=== PATIENT | male | born 1950 | race Caucasian/White ===

== ENCOUNTER 2018-04-20 07:14 | Inpatient (IN) | payer OTHER ==
--- OUTSIDE RECORDS SUMMARY | 2018-04-20 07:17 | XMS REPORT | Clinical Summary ---
:1950 Author Organization [facility] Address [address] [place] [address] Phone Care Team Providers Name Role Phone Unavailable Primary Care Provider Unavailable Allergies No Known Allergies Current Medications Prescription Sig. Disp. Refills Start Date End Date Status aspirin 81 MG EC Take 1 tablet 90 tablet 0 05/05/2017 Active tabletIndications: (81 mg total) unknown dosage by mouth daily. atorvastatin Take 1 tablet 90 tablet 0 05/05/2017 05/05/2018 Active (LIPITOR) 80 MG (80 mg total) tablet by mouth nightly. metoprolol Take 1 tablet 90 tablet 0 05/05/2017 05/05/2018 Active (TOPROL-XL) 25 MG (25 mg total) 24 hr tablet by mouth daily. aspirin 81 MG EC Take by mouth 05/05/2017 Discontinued tabletIndications: daily. unknown dosage ibuprofen Take by mouth 05/05/2017 Discontinued (ADVIL,MOTRIN) 200 every 6 (six) MG hours as tabletIndications: needed for unknown dosage Pain. Active Problems Problem Noted Date Received tissue plasminogen activator (t-PA) less than 24 hours prior to 05/05 arrival Essential hypertension 05/05/2017 Mixed hyperlipidemia 05/05/2017 Acute ischemic right MCA stroke (HCC) 05/02/2017 Resolved Problems Problem Noted Date Resolved Date Aphasia 05/02/2017 05/02/2017 Encounters Date Type Specialty Care Team Description 05/03/2017 Orders Only General Internal Medicine 05/02/2017 - Hospital Encounter General Internal Ovidio Kramer Acute ischemic right 05/05/2017 Chelsea Castrejon MD MCA stroke (HCC) Camila Donaldson, (Primary MD Dx);Aphasia;[facility] hypertension;Mixed hyperlipidemia;Recei tong tissue plasminogen activator (t-PA) less than 24 hours prior to arrival;Left acute arterial ischemic stroke, MCA (middle cerebral artery) (HCC);Right hemiparesis (HCC);Impaired mobility and ADLs after 04/19/2017 Social History Tobacco Use Types Packs/Day Years Used Date Former Smoker Sex Assigned at Date Recorded Not on file Last Filed Vital Signs Vital Sign Reading Time Taken Blood Pressure 176/89 05/05/2017 4:12 PM CDT Pulse 59 05/05/2017 4:12 PM CDT Temperature 37.2 C (98.9 F) 05/05/2017 4:12 PM CDT Respiratory Rate 18 05/05/2017 4:12 PM CDT Oxygen Saturation 96% 05/05/2017 4:12 PM CDT Inhaled Oxygen Concentration - - Weight 77.2 kg (170 lb 3.1 oz) 05/03/2017 10:00 AM CDT Height 167.6 cm (5' 6") 05/03/2017 10:00 AM CDT Body Mass Index 27.47 05/03/2017 10:00 AM CDT Plan of Treatment Not on file Results RHYTHM STRIP - SCAN (06/23/2017 2:02 PM)Only the most recent of2 resultswithin the time period is included.EKG-SCANNED (05/08/2017 2:50 PM)CBC with platelet count + automated diff (05/05/2017 4:31 AM)Only the most recent of4 resultswithin the time period is included. Component Value Ref Range WBC 9.0 3.5 - 10.5 K/L RBC 4.86 4.63 - 6.08 M/L Hemoglobin 13.8 13.7 - 17.5 GM/DL Hematocrit 41.3 40.1 - 51.0 % MCV 85.0 79.0 - 92.2 fL MCH 28.4 25.7 - 32.2 pg MCHC 33.4 32.3 - 36.5 GM/DL RDW 12.7 11.6 - 14.4 % Platelets 240 150 - 450 K/CU MM MPV 11.0 9.4 - 12.4 fL nRBC 0 0 - 0 /100 WBC % Neutros 48 % % Lymphs 34 % % Monos 11 % % Eos 6 % % Baso 1 % # Neutros 4.35 1.78 - 5.38 K/L # Lymphs 3.04 1.32 - 3.57 K/L # Monos 0.99 (H) 0.30 - 0.82 K/L # Eos 0.51 0.04 - 0.54 K/L # Baso 0.06 0.01 - 0.08 K/L Immature Granulocytes-Relative 0 0 - 1 % Specimen Performing Laboratory Blood - Arm, [address] [address] CBC with platelet count + automated diff (05/05/2017 4:31 AM)Only the most recent of4 resultswithin the time period is included. Specimen Performing Laboratory Blood Narrative The following orders were created for panel order CBC with platelet count + automated diff. Procedure Abnormality Status --------- ------ CBC with platelet count ...[[id number]]AbnormalFinal result Please view results for these tests on the individual orders. Basic Metabolic Panel (05/05/2017 4:31 AM)Only the most recent of4 resultswithin the time period is included. Component Value Ref Range Sodium 138 136 - 145 meq/L Potassium 3.7 3.5 - 5.1 meq/L Chloride 107 98 - 107 meq/L CO2 20 (L) 22 - 29 meq/L BUN 13 7 - 21 mg/dL Creatinine 1.04 0.57 - 1.25 mg/dL Glucose 88 70 - 105 mg/dL Calcium 8.7 8.4 - 10.2 mg/dL EGFR 71Comment: ESTIMATED GFR IS NOT ACCURATE mL/min/1.73 sq m CREATININE CLEARANCE IN PREDICTING GLOMERULAR FILTRATION RATE. ESTIMATED GFR IS NOT APPLICABLE FOR DIALYSIS PATIENTS. Specimen Performing Laboratory Blood - Arm, [address] [address] MR brain without IV contrast (05/03/2017 4:10 PM) Specimen Performing Laboratory GE RIS Narrative FINAL REPORT MRI brain without contrast INDICATION: Stroke TECHNIQUE: Multiplanar, multisequence MR imaging of the brain was performed utilizing the following imaging sequences: Axial T2, FLAIR, GRE, and DWI; sagittal and coronal T1 COMPARISON: CT head 05/02/2017 FINDINGS: There are multifocal acute left MCA territory primarily cortical infarcts involving the inferolateral and suprasylvian frontal lobe, parietal lobe, and lateral occipital and superior temporal lobes and anterior insula. There is left parietal cortical petechial hemorrhage but no malignant hematoma or remarkable current mass effect. Mild to moderate chronic white matter changes suggest microvascular ischemia. There is generalized parenchymal volume loss. The major proximal [place] of [place] flow voids are maintained. The sella and craniocervical junction are unremarkable. There is chronic polypoid sinus mucosal disease with clear mastoid air cells. The globes appear mildly proptotic. A small T2 hyperintense lesion adjacent to the left TMJ could reflect a small likely joint effusion or synovial cyst, but a primary parotid lesion cannot be excluded given another T2 hyperintense lesion more peripherally in the left parotid gland. Advise ENT follow up. IMPRESSION: 1. Acute multifocal left MCA territory primarily cortical infarction involving the frontal, parietal, occipital, and superior temporal lobes and anterior insula. Left parietal petechial hemorrhage but no malignant hematoma or remarkable current mass effect. 2. Chronic microvascular ischemic changes. 3. Small left parotid and periparotid lesions for which ENT follow up is suggested. 4. Additional chronic and involutional findings as discussed. Findings discussed with stroke neurology housestaff at 4:25 PM Signed: Tonja Gonsalez MD Report Verified Date/Time:05/03/2017 16:26:21 Reading Location: [facility] [id number] Consult Reading Room Procedure Note Interface, External Ris In - 05/03/2017 4:28 PM CDT FINAL REPORT MRI brain without contrast INDICATION: Stroke TECHNIQUE: Multiplanar, multisequence MR imaging of the brain was performed utilizing the following imaging sequences: Axial T2, FLAIR, GRE, and DWI; sagittal and coronal T1 COMPARISON: CT head 05/02/2017 FINDINGS: There are multifocal acute left MCA territory primarily cortical infarcts involving the inferolateral and suprasylvian frontal lobe, parietal lobe, and lateral occipital and superior temporal lobes and anterior insula. There is left parietal cortical petechial hemorrhage but no malignant hematoma or remarkable current mass effect. Mild to moderate chronic white matter changes suggest microvascular ischemia. There is generalized parenchymal volume loss. The major proximal [place] of [place] flow voids are maintained. The sella and craniocervical junction are unremarkable. There is chronic polypoid sinus mucosal disease with clear mastoid air cells. The globes appear mildly proptotic. A small T2 hyperintense lesion adjacent to the left TMJ could reflect a small likely joint effusion or synovial cyst, but a primary parotid lesion cannot be excluded given another T2 hyperintense lesion more peripherally in the left parotid gland. Advise ENT follow up. IMPRESSION: 1. Acute multifocal left MCA territory primarily cortical infarction involving the frontal, parietal, occipital, and superior temporal lobes and anterior insula. Left parietal petechial hemorrhage but no malignant hematoma or remarkable current mass effect. 2. Chronic microvascular ischemic changes. 3. Small left parotid and periparotid lesions for which ENT follow up is suggested. 4. Additional chronic and involutional findings as discussed. Findings discussed with stroke neurology housestaff at 4:25 PM Signed: Tonja Gonsalez MD Report Verified Date/Time: 05/03/2017 16:26:21 Reading Location: [facility] [id number] Consult Reading Room /Free T4 If Indicated (05/03/2017 2:15 PM) Component Value Ref Range TSH 1.26 0.35 - 4.94 uIU/mL Specimen Performing Laboratory Blood [address] [address] Troponin I (05/03/2017 2:15 PM) Component Value Ref Range Troponin I 0.11 (H) 0.00 - 0.03 ng/mL Specimen Performing Laboratory Blood [address] [address] Narrative Effective 08/26/2014: Reference Range Change New: 0.00-0.03 Previous 0.00-0.15 Troponin I (TnI) levels must be interpreted in the context of the presenting symptoms and the clinical findings. Elevated TnI levels indicate myocardial damage, but are not specific for ischemic heart disease. Elevated TnI levels are seen in patients with other cardiac conditions (including myocarditis and congestive heart failure), and slight TnI elevations occur in patients with other conditions, including sepsis, renal failure, acidosis, acute neurological disease, and persistent tachyarrhythmia. RPR (05/03/2017 2:15 PM) Component Value Ref Range RPR Nonreactive Nonreactive Specimen Performing Laboratory [address] [address] B-type Natriuretic Factor (BNP) (05/03/2017 2:15 PM) Component Value Ref Range BNP 185 (H) 0 - 100 pg/mL Specimen Performing Laboratory Blood [address] [address] Hemoglobin A1c (05/03/2017 2:15 PM) Component Value Ref Range Hemoglobin A1C 5.9 4.3 - 6.1 % Specimen Performing Laboratory [address] [address] Vitamin B12 (05/03/2017 2:15 PM) Component Value Ref Range Vitamin B12 296 213 - 816 pg/mL Specimen Performing Laboratory Blood [address] [address] Creatine Kinase (CK), Total and MB (05/03/2017 2:15 PM) Component Value Ref Range Total CK 195 29 - 200 U/L CK-MB 1.6 0.0 - 6.6 ng/mL MB Relative Index 0.8 % Specimen Performing Laboratory Blood [address] [address] Narrative Effective 08/26/2014: CK-MB Reference Range Change New: 0.0-6.6Previous: 0.0-4.9 CK-MB Reference Range: <6.7Normal 6.7-10.0Borderline >10.0 Abnormal Hepatic function panel (05/03/2017 2:15 PM) Component Value Ref Range Protein, Total 6.8 6.0 - 8.3 gm/dL Albumin 4.1 3.5 - 5.0 g/dL Total Bilirubin 0.9 0.2 - 1.2 mg/dL Bilirubin, Direct 0.3 0.1 - 0.5 mg/dL Alkaline Phosphatase 53 40 - 150 U/L AST 27 5 - 34 U/L ALT 36 6 - 55 U/L Specimen Performing Laboratory Blood [address] [address] 2D Echo W/Doppler(CW/PW/Color) (05/03/2017 12:28 PM) Specimen Performing Laboratory DIGISONICS Narrative Echocardiography Laboratory [address] [place] [id number] Voice:[phone] Transthoracic Echocardiogram Pat.Name:Osman SWIFT.ID:[id number] .Date: 05/03/2017 Refer.MD:MÓNICA GARNER Exam Time: 12:28:00 PM Study Type:Echo Complete Height:68inWeight: 170lb BSA: 1.91 m2 DOBAge:1950,66Y Sex: MALEBP:161/86 HR:101 bpm Sonogrphr: Melanie Mueller [facility] Pat. Stat.:Inpatient Room:[facility] Reason for Study:Stroke work up History / Clinical:Arrhythmias/palpitations, Stroke/TIA Procedures:2D ECHO W/ DOPPLER (CW/PW/COLOR), Agitated saline done SUMMARY: All of the LV segments contract normally. Estimated LVEF by qualitative assessment is normal (60%). Grade 1 diastolic dysfunction (impaired relaxation and low-normal LA pressure). The right ventricular chamber size and systolic function are within normal limits. IV saline contrast injection was negative for a PFO (patent foramen ovale) at rest and post Valsalva. The estimated RA pressure by IVC dynamics 5-10 mmHg. FINDINGS: Rhythm/BP: Regular sinus rhythm during the exam. LV: Global LV systolic function is normal. All of the LV segmentscontract normally. No evidence of LV hypertrophy. Leftventricular chamber size (by vol index) is normal (male- LVED vol - 34-74 ml/m2). Estimated LVEF by qualitativeassessment is normal (60%). Grade 1 diastolic dysfunction(impaired relaxation and low-normal LA pressure).Normal (cardiac index 2-3 L/min/m2) cardiac outputstate at rest is noted. LA: LA size is normal (16-34 ml/m2). RV: The right ventricular chamber size and systolic function are withinnormal limits. RA: RA cavity size is normal. IAS:IV saline contrast injection was negative for a PFO (patent foramenovale) at rest and post Valsalva. AV: AoV cusp mobility is normal. AoV thickening primarily involvesthe right- coronary cusp(s). MV: Mild mitral regurgitation. Mild MV leaflet thickening. Mild mitralannular calcification. TV: Mild TV leaflet thickening. PV: Normal PV structure and function. AO: Aortic root size (Sinus of Valsalva diameter) is normal. Pericard: No pericardial effusion is visualized. Systemic Veins: The estimated RA pressure by IVC dynamics 5-10 mmHg. Comparison: No prior exam available for comparison. MEASUREMENTS: 2D LV Sng Plane LV Ad 25.3 cm2(9.5-22.3)* LngAxd 7.29 cm LVEDV 72.9 ml (65-193) Index38.2 ml/m2 LA Sng Plane LA Vol62.3 mlIndex 32.6 ml/m2 LA Area 20.9 cm2(8.8-23.4) LVOT Stroke Vol & Cardiac Out LVOT2.08 cm Parasternal [place] Ao An 2.08 cm (1.4-2.6) LV%fs 38.2 %(25-46) Ao Rtd 3.1 cmLVPWd0.998 cm IVSd 0.996 cm LA Ds 4.31 cm (2.3-3.9)* LVIDd 3.91 cm (4.3-5.1)* LV Wmn 0.997 cm LVIDs 2.42 cm (2-4) DOPPLER LVOT Stroke Vol & Cardiac Out LVOT VTI21.2 cmLVOT CO 5.68 l/min LVOT SV 71.9 mlLVOT CI 2.97 l/min/m2 Aortic Valve SVi (LVOT)37.6 Mitral Valve MV [id number] msec Signed 05/03/2017 05:08 PM Mary Ann M.D. Procedure Note Interface, External Ris In - 05/03/2017 5:08 PM CDT Echocardiography Laboratory [address] [place] [address] Voice: [phone] Transthoracic Echocardiogram Pat.Name: DEONNA SWIFT Pat.ID: [id number] St.Date: 05/03/2017 Refer.MD: MÓNICA GARNER Exam Time: 12:28:00 PM Study Type:Echo Complete Height: 68in Weight: 170lb BSA: 1.91 m2 Age: 7 1950,66Y Sex: MALE BP: 161/86 HR: 101 bpm Sonogrphr: Melanie Mueller [facility] Pat. Stat.:Inpatient Room: [facility] Reason for Study:Stroke work up History / Clinical:Arrhythmias/palpitations, Stroke/TIA Procedures:2D ECHO W/ DOPPLER (CW/PW/COLOR), Agitated saline done SUMMARY: All of the LV segments contract normally. Estimated LVEF by qualitative assessment is normal (60%). Grade 1 diastolic dysfunction (impaired relaxation and low-normal LA pressure). The right ventricular chamber size and systolic function are within normal limits. IV saline contrast injection was negative for a PFO (patent foramen ovale) at rest and post Valsalva. The estimated RA pressure by IVC dynamics 5-10 mmHg. FINDINGS: Rhythm/BP: Regular sinus rhythm during the exam. LV: Global LV systolic function is normal. All of the LV segments contract normally. No evidence of LV hypertrophy. Left ventricular chamber size (by vol index) is normal (male - LVED vol - 34-74 ml/m2). Estimated LVEF by qualitative assessment is normal (60%). Grade 1 diastolic dysfunction (impaired relaxation and low-normal LA pressure). Normal (cardiac index 2-3 L/min/m2) cardiac output state at rest is noted. LA: LA size is normal (16-34 ml/m2). RV: The right ventricular chamber size and systolic function are within normal limits. RA: RA cavity size is normal. IAS: IV saline contrast injection was negative for a PFO (patent foramen ovale) at rest and post Valsalva. AV: AoV cusp mobility is normal. AoV thickening primarily involves the right- coronary cusp(s). MV: Mild mitral regurgitation. Mild MV leaflet thickening. Mild mitral annular calcification. TV: Mild TV leaflet thickening. PV: Normal PV structure and function. AO: Aortic root size (Sinus of Valsalva diameter) is normal. Pericard: No pericardial effusion is visualized. Systemic Veins: The estimated RA pressure by IVC dynamics 5-10 mmHg. Comparison: No prior exam available for comparison. MEASUREMENTS: 2D LV Sng Plane LV Ad 25.3 cm2 (9.5-22.3)* LngAxd 7.29 cm LVEDV 72.9 ml (65-193) Index 38.2 ml/m2 LA Sng Plane LA Vol 62.3 ml Index 32.6 ml/m2 LA Area 20.9 cm2 (8.8-23.4) LVOT Stroke Vol & Cardiac Out LVOT 2.08 cm Parasternal [place] Ao An 2.08 cm (1.4-2.6) LV%fs 38.2 % (25-46) Ao Rtd 3.1 cm LVPWd 0.998 cm IVSd 0.996 cm LA Ds 4.31 cm (2.3-3.9)* LVIDd 3.91 cm (4.3-5.1)* LV Wmn 0.997 cm LVIDs 2.42 cm (2-4) DOPPLER LVOT Stroke Vol & Cardiac Out LVOT VTI 21.2 cm LVOT CO 5.68 l/min LVOT SV 71.9 ml LVOT CI 2.97 l/min/m2 Aortic Valve SVi (LVOT) 37.6 Mitral Valve MV DeTm 246 msec Signed 05/03/2017 05:08 PM Mary Ann M.D. ECG 12 lead (05/03/2017 9:19 AM) Specimen Performing Laboratory GE MUSE Narrative Ventricular Rate 77 BPM Atrial Rate 77 BPM P-R Interval 144 ms QRS Duration 82 ms Q-T Interval 406 ms QTC Calculation(Bazett) 459 ms P [place] 55 degrees R [place] -27 degrees T [place] 1 degrees Normal sinus rhythm Cannot rule out Inferior infarct , age undetermined Abnormal ECG No previous ECGs available Confirmed by MD BENITEZ JORGE ([id number]) on 05/03/2017 12:56:37 PM Procedure Note Interface, External Ris In - 05/03/2017 12:56 PM CDT Ventricular Rate 77 BPM Atrial Rate 77 BPM P-R Interval 144 ms QRS Duration 82 ms Q-T Interval 406 ms QTC Calculation(Bazett) 459 ms P [place] 55 degrees R [place] -27 degrees T [place] 1 degrees Normal sinus rhythm Cannot rule out Inferior infarct , age undetermined Abnormal ECG No previous ECGs available Confirmed by MD BENITEZ JORGE ([id number]) on 05/03/2017 12:56:37 PM Fasting lipid panel (05/03/2017 3:33 AM) Component Value Ref Range Triglycerides 128 mg/dL Cholesterol 176 mg/dL HDL 31 mg/dL LDL Calculated 119 mg/dL Specimen Performing [place] [address] Narrative Triglyceride Reference Range: Low Risk <150 [id number] High Risk 200-499 Very High Risk>=500 Cholesterol Reference Range: Low Risk <200 [id number] High Risk>240 HDL Cholesterol Reference Range: Low Risk >=60 High Risk <40 LDL Cholesterol Reference Range: Optimal<100 Near [id number] [id number] Pner549-433 Very High >=[address] brain/stroke test design (05/02/2017 1:48 PM) Specimen Performing Laboratory GE RIS Narrative FINAL REPORT CT head without contrast 05/02/2017 1:47 PM CLINICAL HISTORY: stroke TECHNIQUE: Axial noncontrast CT images through the head were obtained. This examination was performed according to our departmental dose optimization program, which includes automated exposure control, adjustment of the mA and/or kV according to patient size, and/or use of iterated reconstruction technique. COMPARISON: None available FINDINGS: There is no hemorrhage, extra-axial collection, mass, hydrocephalus, or midline shift. There is mild microvascular ischemia in the supratentorial white matter. There is generalized parenchymal volume loss. There is paranasal sinus mucosal thickening without fluid levels. The tympanomastoid cavities are well-aerated. The skull is unremarkable. IMPRESSION: No intracranial hemorrhage or mass effect. Chronic appearing microvascular and involutional changes. If concern for acute pathology persists, further evaluation with MRI is recommended. Signed: Tony Askew MD Report Verified Date/Time:05/02/2017 13:49:10 Reading Location: [address] Neuro Reading Room Procedure Note Interface, External Ris In - 05/02/2017 1:52 PM CDT FINAL REPORT CT head without contrast 05/02/2017 1:47 PM CLINICAL HISTORY: stroke TECHNIQUE: Axial noncontrast CT images through the head were obtained. This examination was performed according to our departmental dose optimization program, which includes automated exposure control, adjustment of the mA and/or kV according to patient size, and/or use of iterated reconstruction technique. COMPARISON: None available FINDINGS: There is no hemorrhage, extra-axial collection, mass, hydrocephalus, or midline shift. There is mild microvascular ischemia in the supratentorial white matter. There is generalized parenchymal volume loss. There is paranasal sinus mucosal thickening without fluid levels. The tympanomastoid cavities are well-aerated. The skull is unremarkable. IMPRESSION: No intracranial hemorrhage or mass effect. Chronic appearing microvascular and involutional changes. If concern for acute pathology persists, further evaluation with MRI is recommended. Signed: Tony Askew MD Report Verified Date/Time: 05/02/2017 13:49:10 Reading Location: [address] Neuro Reading Room brain (05/02/2017 1:48 PM) Specimen Performing Laboratory GE RIS Narrative FINAL REPORT CTA carotids and brain 05/02/2017 1:38 PM CLINICAL INDICATION: stroke COMPARISON: None available TECHNIQUE: Axial CT angiographic images of the upper chest, neck, and head were obtained, from which three-dimensional reconstructed images were created. Additional imaging series were created on an independent workstation using maximum intensity projection and volume rendered technique. This examination was performed according to our departmental dose optimization program, which includes automated exposure control, adjustment of the mA and/or kV according to patient size, and/or use of iterated reconstruction technique. FINDINGS: There is no vessel occlusion. Soft atherosclerotic plaque deposition in the left carotid bifurcation results in 22% left cervical internal carotid artery origin stenosis (NASCET criteria). There is no remarkable stenosis elsewhere in the intracranial or extracranial arterial vasculature. The visualized soft tissue and skeleton are without worrisome finding. IMPRESSION: 1. Mild extracranial atherosclerotic vascular disease. 2. Unremarkable intracranial CTA. Signed: Tony Askew MD Report Verified Date/Time:05/02/2017 13:41:22 Reading Location: [address] Neuro Reading Room Procedure Note Interface, External Ris In - 05/02/2017 3:03 PM CDT FINAL REPORT CTA carotids and brain 05/02/2017 1:38 PM CLINICAL INDICATION: stroke COMPARISON: None available TECHNIQUE: Axial CT angiographic images of the upper chest, neck, and head were obtained, from which three-dimensional reconstructed images were created. Additional imaging series were created on an independent workstation using maximum intensity projection and volume rendered technique. This examination was performed according to our departmental dose optimization program, which includes automated exposure control, adjustment of the mA and/or kV according to patient size, and/or use of iterated reconstruction technique. FINDINGS: There is no vessel occlusion. Soft atherosclerotic plaque deposition in the left carotid bifurcation results in 22% left cervical internal carotid artery origin stenosis (NASCET criteria). There is no remarkable stenosis elsewhere in the intracranial or extracranial arterial vasculature. The visualized soft tissue and skeleton are without worrisome finding. IMPRESSION: 1. Mild extracranial atherosclerotic vascular disease. 2. Unremarkable intracranial CTA. Signed: Tony Askew MD Report Verified Date/Time: 05/02/2017 13:41:22 Reading Location: [address] Neuro Reading Room carotid (05/02/2017 1:41 PM) Specimen Performing Laboratory GE RIS Narrative FINAL REPORT CTA carotids and brain 05/02/2017 1:38 PM CLINICAL INDICATION: stroke COMPARISON: None available TECHNIQUE: Axial CT angiographic images of the upper chest, neck, and head were obtained, from which three-dimensional reconstructed images were created. Additional imaging series were created on an independent workstation using maximum intensity projection and volume rendered technique. This examination was performed according to our departmental dose optimization program, which includes automated exposure control, adjustment of the mA and/or kV according to patient size, and/or use of iterated reconstruction technique. FINDINGS: There is no vessel occlusion. Soft atherosclerotic plaque deposition in the left carotid bifurcation results in 22% left cervical internal carotid artery origin stenosis (NASCET criteria). There is no remarkable stenosis elsewhere in the intracranial or extracranial arterial vasculature. The visualized soft tissue and skeleton are without worrisome finding. IMPRESSION: 1. Mild extracranial atherosclerotic vascular disease. 2. Unremarkable intracranial CTA. Signed: Tony Askew MD Report Verified Date/Time:05/02/2017 13:41:22 Reading Location: [address] Neuro Reading Room Procedure Note Interface, External Ris In - 05/02/2017 3:03 PM CDT FINAL REPORT CTA carotids and brain 05/02/2017 1:38 PM CLINICAL INDICATION: stroke COMPARISON: None available TECHNIQUE: Axial CT angiographic images of the upper chest, neck, and head were obtained, from which three-dimensional reconstructed images were created. Additional imaging series were created on an independent workstation using maximum intensity projection and volume rendered technique. This examination was performed according to our departmental dose optimization program, which includes automated exposure control, adjustment of the mA and/or kV according to patient size, and/or use of iterated reconstruction technique. FINDINGS: There is no vessel occlusion. Soft atherosclerotic plaque deposition in the left carotid bifurcation results in 22% left cervical internal carotid artery origin stenosis (NASCET criteria). There is no remarkable stenosis elsewhere in the intracranial or extracranial arterial vasculature. The visualized soft tissue and skeleton are without worrisome finding. IMPRESSION: 1. Mild extracranial atherosclerotic vascular disease. 2. Unremarkable intracranial CTA. Signed: Tony Askew MD Report Verified Date/Time: 05/02/2017 13:41:22 Reading Location: [facility] [id number] Neuro Reading Room after 04/19/2017
--- OUTSIDE RECORDS SUMMARY | 2018-04-20 07:17 | XMS REPORT ---
:1950 [facility] Address [address] [place] [address] Care Team Providers Name Role Phone SALVATORE SINGH Unavailable Unavailable Problems This patient has no known problems. Allergies, Adverse Reactions, Alerts This patient has no known allergies or adverse reactions. Medications This patient has no known medications. Results Test Description Test Time Test Comments Text Results Atomic Results Result Comments BASIC METABOLIC PANEL 2017-05-05 06:28:00 Test Item Value Reference Range Comments SODIUM (BEAKER) (test 138 meq/L 136-145 jktk=358) POTASSIUM (BEAKER) (test 3.7 meq/L 3.5-5.1 pmyv=698) CHLORIDE (BEAKER) (test 107 meq/L 98-107 rrmo=002) CO2 (BEAKER) (test appw=571) 20 meq/L 22-29 BLOOD UREA NITROGEN (BEAKER) 13 mg/dL 7-21 (test iveq=392) CREATININE (BEAKER) (test 1.04 mg/dL 0.57-1.25 vrnr=590) GLUCOSE RANDOM (BEAKER) 88 mg/dL 70-105 (test hygh=481) CALCIUM (BEAKER) (test 8.7 mg/dL 8.4-10.2 sgec=254) EGFR (BEAKER) (test 71 mL/min/1.73 sq m ESTIMATED GFR IS NOT ecno=6732) ACCURATE CREATININE CLEARANCE IN PREDICTING GLOMERULAR FILTRATION RATE. ESTIMATED GFR IS NOT APPLICABLE FOR DIALYSIS PATIENTS. CBC W/PLT COUNT & AUTO [id number] 06:04:00 Test Item Value Reference Range Comments WHITE BLOOD CELL COUNT (BEAKER) (test uvov=265) 9.0 K/ L 3.5-10.5 RED BLOOD CELL COUNT (BEAKER) (test gkqw=074) 4.86 M/ L 4.63-6.08 HEMOGLOBIN (BEAKER) (test rjpk=266) 13.8 GM/DL 13.7-17.5 HEMATOCRIT (BEAKER) (test hnur=030) 41.3 % 40.1-51.0 MEAN CORPUSCULAR VOLUME (BEAKER) (test vwyf=764) 85.0 fL 79.0-92.2 MEAN CORPUSCULAR HEMOGLOBIN (BEAKER) (test 28.4 pg 25.7-32.2 dkrv=565) MEAN CORPUSCULAR HEMOGLOBIN CONC (BEAKER) (test 33.4 GM/DL 32.3-36.5 fovv=393) RED CELL DISTRIBUTION WIDTH (BEAKER) (test 12.7 % 11.6-14.4 vgla=512) PLATELET COUNT (BEAKER) (test piuu=497) 240 K/CU MM 150-450 MEAN PLATELET VOLUME (BEAKER) (test inht=749) 11.0 fL 9.4-12.4 NUCLEATED RED BLOOD CELLS (BEAKER) (test 0 /100 WBC 0-0 gcrr=378) NEUTROPHILS RELATIVE PERCENT (BEAKER) (test 48 % autm=579) LYMPHOCYTES RELATIVE PERCENT (BEAKER) (test 34 % trwh=410) MONOCYTES RELATIVE PERCENT (BEAKER) (test 11 % pdmm=843) EOSINOPHILS RELATIVE PERCENT (BEAKER) (test 6 % alnf=643) BASOPHILS RELATIVE PERCENT (BEAKER) (test 1 % xxnt=133) NEUTROPHILS ABSOLUTE COUNT (BEAKER) (test 4.35 K/ L 1.78-5.38 fvaa=398) LYMPHOCYTES ABSOLUTE COUNT (BEAKER) (test 3.04 K/ L 1.32-3.57 gyvv=828) MONOCYTES ABSOLUTE COUNT (BEAKER) (test 0.99 K/ L 0.30-0.82 tbmz=563) EOSINOPHILS ABSOLUTE COUNT (BEAKER) (test 0.51 K/ L 0.04-0.54 agky=842) BASOPHILS ABSOLUTE COUNT (BEAKER) (test 0.06 K/ L 0.01-0.08 umcn=467) IMMATURE GRANULOCYTES-RELATIVE PERCENT (BEAKER) 0 % 0-1 (test uvgx=1246) BASIC METABOLIC [id number] 06:22:00 Test Item Value Reference Range Comments SODIUM (BEAKER) (test 138 meq/L 136-145 xyug=204) POTASSIUM (BEAKER) (test 3.5 meq/L 3.5-5.1 wxcw=038) CHLORIDE (BEAKER) (test 107 meq/L 98-107 nnyo=766) CO2 (BEAKER) (test 21 meq/L 22-29 tsos=388) BLOOD UREA NITROGEN 10 mg/dL 7-21 (BEAKER) (test inag=211) CREATININE (BEAKER) (test 0.85 mg/dL 0.57-1.25 ismm=720) GLUCOSE RANDOM (BEAKER) 104 mg/dL 70-105 (test oass=956) CALCIUM (BEAKER) (test 8.5 mg/dL 8.4-10.2 pvea=652) EGFR (BEAKER) (test 90 mL/min/1.73 sq m ESTIMATED GFR IS NOT kbuo=9363) ACCURATE CREATININE CLEARANCE IN PREDICTING GLOMERULAR FILTRATION RATE. ESTIMATED GFR IS NOT APPLICABLE FOR DIALYSIS PATIENTS. CBC W/PLT COUNT & AUTO [id number] 06:10:00 Test Item Value Reference Range Comments WHITE BLOOD CELL COUNT (BEAKER) (test fuug=562) 10.4 K/ L 3.5-10.5 RED BLOOD CELL COUNT (BEAKER) (test tjfj=875) 4.72 M/ L 4.63-6.08 HEMOGLOBIN (BEAKER) (test qyis=002) 13.5 GM/DL 13.7-17.5 HEMATOCRIT (BEAKER) (test xhje=906) 40.1 % 40.1-51.0 MEAN CORPUSCULAR VOLUME (BEAKER) (test wvtm=175) 85.0 fL 79.0-92.2 MEAN CORPUSCULAR HEMOGLOBIN (BEAKER) (test 28.6 pg 25.7-32.2 jvrs=770) MEAN CORPUSCULAR HEMOGLOBIN CONC (BEAKER) (test 33.7 GM/DL 32.3-36.5 dbcl=840) RED CELL DISTRIBUTION WIDTH (BEAKER) (test 12.7 % 11.6-14.4 wlsr=389) PLATELET COUNT (BEAKER) (test kbsn=574) 232 K/CU MM 150-450 MEAN PLATELET VOLUME (BEAKER) (test bdjs=017) 10.6 fL 9.4-12.4 NUCLEATED RED BLOOD CELLS (BEAKER) (test 0 /100 WBC 0-0 dnad=165) NEUTROPHILS RELATIVE PERCENT (BEAKER) (test 70 % rhvd=013) LYMPHOCYTES RELATIVE PERCENT (BEAKER) (test 18 % zsdj=350) MONOCYTES RELATIVE PERCENT (BEAKER) (test 10 % iunm=485) EOSINOPHILS RELATIVE PERCENT (BEAKER) (test 1 % gjda=548) BASOPHILS RELATIVE PERCENT (BEAKER) (test 1 % ysaf=981) NEUTROPHILS ABSOLUTE COUNT (BEAKER) (test 7.30 K/ L 1.78-5.38 jwvc=451) LYMPHOCYTES ABSOLUTE COUNT (BEAKER) (test 1.83 K/ L 1.32-3.57 qsgd=442) MONOCYTES ABSOLUTE COUNT (BEAKER) (test 1.03 K/ L 0.30-0.82 xeff=798) EOSINOPHILS ABSOLUTE COUNT (BEAKER) (test 0.15 K/ L 0.04-0.54 rxpi=924) BASOPHILS ABSOLUTE COUNT (BEAKER) (test 0.06 K/ L 0.01-0.08 ezxt=902) IMMATURE GRANULOCYTES-RELATIVE PERCENT (BEAKER) 0 % 0-1 (test mddn=9239) [id number] 02:36:00 Test Item Value Reference Range Comments RPR SCREEN (BEAKER) (test nhsm=589) Nonreactive Nonreactive HEMOGLOBIN [id number] 15:31:00 Test Item Value Reference Range Comments HEMOGLOBIN A1C (BEAKER) (test wsys=914) 5.9 % 4.3-6.1 VITAMIN [id number] 15:21:00 Test Item Value Reference Range Comments VITAMIN B12 (BEAKER) (test lnjh=218) 296 pg/mL 213-816 TSH/FREE T4 IF [id number] 15:21:00 Test Item Value Reference Range Comments THYROID STIMULATING HORMONE (BEAKER) (test 1.26 uIU/mL 0.35-4.94 xoxy=061) CREATINE KINASE (CK), TOTAL AND [id number] 15:00:00 Test Item Value Reference Range Comments CREATINE KINASE TOTAL (BEAKER) (test zjtk=227) 195 U/L 29-200 CREATINE KINASE-MB (BEAKER) (test clmn=594) 1.6 ng/mL 0.0-6.6 CREATINE KINASE-MB INDEX (BEAKER) (test auxd=361) 0.8 % Effective 08/26/2014: CK-MB Reference Range ChangeNew: 0.0-6.6 Previous: 0.0- 4.9CK-MB Reference Range:<6.7 Normal6.7-10.0 Borderline>10.0 AbnormalTROPONIN [id number] 15:00:00 Test Item Value Reference Range Comments TROPONIN I (BEAKER) (test eayv=305) 0.11 ng/mL 0.00-0.03 Effective 08/26/2014: Reference Range ChangeNew: 0.00-0.03 Previous 0.00- 0.15Troponin I (TnI) levels must be interpreted in the context of the presenting symptoms and the clinical findings. Elevated TnI levels indicate myocardial damage, but are not specific for ischemic heart disease. Elevated TnI levels are seen in patients with other cardiac conditions (including myocarditis and congestive heartfailure), and slight TnI elevations occur in patients with other conditions, including sepsis, renalfailure, acidosis, acute neurological disease, and persistent tachyarrhythmia.B-TYPE NATRIURETIC FACTOR ( BNP)2017-05-03 15:00:00 Test Item Value Reference Range Comments B-TYPE NATRIURETIC PEPTIDE (BEAKER) (test 185 pg/mL 0-100 gzad=501) HEPATIC FUNCTION [id number] 14:59:00 Test Item Value Reference Range Comments TOTAL PROTEIN (BEAKER) (test naxp=384) 6.8 gm/dL 6.0-8.3 ALBUMIN (BEAKER) (test axfz=8410) 4.1 g/dL 3.5-5.0 BILIRUBIN TOTAL (BEAKER) (test pytc=612) 0.9 mg/dL 0.2-1.2 BILIRUBIN DIRECT (BEAKER) (test qvds=527) 0.3 mg/dL 0.1-0.5 ALKALINE PHOSPHATASE (BEAKER) (test qura=990) 53 U/L 40-150 AST (SGOT) (BEAKER) (test ixnf=362) 27 U/L 5-34 ALT (SGPT) (BEAKER) (test odxi=114) 36 U/L 6-55 LIPID [id number] 04:13:00 Test Item Value Reference Range Comments TRIGLYCERIDES (BEAKER) (test nmvk=560) 128 mg/dL CHOLESTEROL (BEAKER) (test chub=495) 176 mg/dL HDL CHOLESTEROL (BEAKER) (test etti=072) 31 mg/dL LDL CHOLESTEROL CALCULATED (BEAKER) (test 119 mg/dL rjip=628) Triglyceride Reference Range: Low Risk <150 Borderline 150- 199 High Risk 200-499 Very High Risk >=500Cholesterol Reference Range: Low Risk <200 Borderline 200-239 High Risk > 240HDL Cholesterol Reference Range: Low Risk >=60 High Risk <40LDL Cholesterol Reference Range: Optimal <100 Near Optimal 100-129 Borderline 130-159 High 160-189 Very High >=190 FastingBASIC METABOLIC [id number] 04:13:00 Test Item Value Reference Range Comments SODIUM (BEAKER) (test 140 meq/L 136-145 gnoo=218) POTASSIUM (BEAKER) (test 3.7 meq/L 3.5-5.1 bkwb=033) CHLORIDE (BEAKER) (test 111 meq/L 98-107 uhhf=080) CO2 (BEAKER) (test 22 meq/L 22-29 opap=050) BLOOD UREA NITROGEN 13 mg/dL 7-21 (BEAKER) (test ducx=731) CREATININE (BEAKER) (test 0.93 mg/dL 0.57-1.25 yahm=796) GLUCOSE RANDOM (BEAKER) 82 mg/dL 70-105 (test xjcq=438) CALCIUM (BEAKER) (test 8.0 mg/dL 8.4-10.2 egda=801) EGFR (BEAKER) (test 81 mL/min/1.73 sq m ESTIMATED GFR IS NOT wjkt=3016) ACCURATE CREATININE CLEARANCE IN PREDICTING GLOMERULAR FILTRATION RATE. ESTIMATED GFR IS NOT APPLICABLE FOR DIALYSIS PATIENTS. FastingCBC W/PLT COUNT & AUTO [id number] 03:54:00 Test Item Value Reference Range Comments WHITE BLOOD CELL COUNT (BEAKER) (test lsvz=001) 10.5 K/ L 3.5-10.5 RED BLOOD CELL COUNT (BEAKER) (test bnvc=238) 3.98 M/ L 4.63-6.08 HEMOGLOBIN (BEAKER) (test uesu=181) 11.6 GM/DL 13.7-17.5 HEMATOCRIT (BEAKER) (test vton=989) 34.6 % 40.1-51.0 MEAN CORPUSCULAR VOLUME (BEAKER) (test zgog=638) 86.9 fL 79.0-92.2 MEAN CORPUSCULAR HEMOGLOBIN (BEAKER) (test 29.1 pg 25.7-32.2 ghvk=412) MEAN CORPUSCULAR HEMOGLOBIN CONC (BEAKER) (test 33.5 GM/DL 32.3-36.5 kjlb=952) RED CELL DISTRIBUTION WIDTH (BEAKER) (test 12.7 % 11.6-14.4 rwur=386) PLATELET COUNT (BEAKER) (test zbfu=065) 200 K/CU MM 150-450 MEAN PLATELET VOLUME (BEAKER) (test fpwr=906) 11.1 fL 9.4-12.4 NUCLEATED RED BLOOD CELLS (BEAKER) (test 0 /100 WBC 0-0 mxmh=962) NEUTROPHILS RELATIVE PERCENT (BEAKER) (test 70 % zruk=865) LYMPHOCYTES RELATIVE PERCENT (BEAKER) (test 20 % sstr=754) MONOCYTES RELATIVE PERCENT (BEAKER) (test 8 % zgjf=535) EOSINOPHILS RELATIVE PERCENT (BEAKER) (test 1 % zdrv=442) BASOPHILS RELATIVE PERCENT (BEAKER) (test 0 % dval=343) NEUTROPHILS ABSOLUTE COUNT (BEAKER) (test 7.38 K/ L 1.78-5.38 rdgw=215) LYMPHOCYTES ABSOLUTE COUNT (BEAKER) (test 2.10 K/ L 1.32-3.57 vxze=370) MONOCYTES ABSOLUTE COUNT (BEAKER) (test 0.88 K/ L 0.30-0.82 dklx=724) EOSINOPHILS ABSOLUTE COUNT (BEAKER) (test 0.09 K/ L 0.04-0.54 lodc=762) BASOPHILS ABSOLUTE COUNT (BEAKER) (test 0.04 K/ L 0.01-0.08 vlmg=958) IMMATURE GRANULOCYTES-RELATIVE PERCENT (BEAKER) 0 % 0-1 (test qoqs=1478) BASIC METABOLIC [id number] 16:31:00 Test Item Value Reference Range Comments SODIUM (BEAKER) (test 140 meq/L 136-145 iqpf=146) POTASSIUM (BEAKER) (test 4.5 meq/L 3.5-5.1 Specimen slightly cbhn=724) hemolyzed CHLORIDE (BEAKER) (test 108 meq/L 98-107 zahv=250) CO2 (BEAKER) (test 26 meq/L 22-29 bpuq=009) BLOOD UREA NITROGEN 16 mg/dL 7-21 (BEAKER) (test mfvw=077) CREATININE (BEAKER) (test 1.18 mg/dL 0.57-1.25 Specimen slightly fktx=808) hemolyzed GLUCOSE RANDOM (BEAKER) 105 mg/dL 70-105 (test ygbp=131) CALCIUM (BEAKER) (test 8.2 mg/dL 8.4-10.2 eckw=248) EGFR (BEAKER) (test 61 mL/min/1.73 sq m ESTIMATED GFR IS NOT ykgp=8114) ACCURATE CREATININE CLEARANCE IN PREDICTING GLOMERULAR FILTRATION RATE. ESTIMATED GFR IS NOT APPLICABLE FOR DIALYSIS PATIENTS. CBC W/PLT COUNT & AUTO [id number] 16:07:00 Test Item Value Reference Range Comments WHITE BLOOD CELL COUNT (BEAKER) (test fxon=977) 10.0 K/ L 3.5-10.5 RED BLOOD CELL COUNT (BEAKER) (test lqbb=422) 4.48 M/ L 4.63-6.08 HEMOGLOBIN (BEAKER) (test hlfs=915) 12.9 GM/DL 13.7-17.5 HEMATOCRIT (BEAKER) (test vpmd=860) 38.5 % 40.1-51.0 MEAN CORPUSCULAR VOLUME (BEAKER) (test jegy=908) 85.9 fL 79.0-92.2 MEAN CORPUSCULAR HEMOGLOBIN (BEAKER) (test 28.8 pg 25.7-32.2 jydc=945) MEAN CORPUSCULAR HEMOGLOBIN CONC (BEAKER) (test 33.5 GM/DL 32.3-36.5 rnyz=727) RED CELL DISTRIBUTION WIDTH (BEAKER) (test 13.0 % 11.6-14.4 dkei=536) PLATELET COUNT (BEAKER) (test lnqs=041) 217 K/CU MM 150-450 MEAN PLATELET VOLUME (BEAKER) (test oheo=696) 10.9 fL 9.4-12.4 NUCLEATED RED BLOOD CELLS (BEAKER) (test 0 /100 WBC 0-0 oqag=346) NEUTROPHILS RELATIVE PERCENT (BEAKER) (test 71 % ampi=190) LYMPHOCYTES RELATIVE PERCENT (BEAKER) (test 22 % vcwk=591) MONOCYTES RELATIVE PERCENT (BEAKER) (test 5 % mpzd=041) EOSINOPHILS RELATIVE PERCENT (BEAKER) (test 0 % famq=517) BASOPHILS RELATIVE PERCENT (BEAKER) (test 1 % jbhq=271) NEUTROPHILS ABSOLUTE COUNT (BEAKER) (test 7.13 K/ L 1.78-5.38 jreg=175) LYMPHOCYTES ABSOLUTE COUNT (BEAKER) (test 2.24 K/ L 1.32-3.57 zbdr=179) MONOCYTES ABSOLUTE COUNT (BEAKER) (test 0.54 K/ L 0.30-0.82 ckvz=408) EOSINOPHILS ABSOLUTE COUNT (BEAKER) (test 0.03 K/ L 0.04-0.54 ysvz=964) BASOPHILS ABSOLUTE COUNT (BEAKER) (test 0.05 K/ L 0.01-0.08 vpzy=571) IMMATURE GRANULOCYTES-RELATIVE PERCENT (BEAKER) 0 % 0-1 (test eesq=6209)
[2018-04-20] MEDS ORDERED: NA CHLORIDE 0.9% 500 ML ONE (07:46)
[2018-04-20] MEDS ORDERED: METOPROLOL TARTRATE 5 MG/5 ML INJ IV ONE (07:46)
[2018-04-20 07:51] LABS: Absolute Lymphocytes (CBC) 3.3 K/uL (0.7-4.9); Absolute Monocytes 0.8 K/uL (0.1-1.3); Basophils % 0.6 % (0-1.3); Eosinophils % 3.6 % (0-4.4); Hematocrit 45.4 % (39.6-49.0); Lymphocytes % 31.5 % (15.3-44.8); MCH 29.5 pg (27.0-35.0); MCV 86.1 fL (80-100); Monocytes % 7.6 % (3.3-12.3); RBC Red Blood Cell Count 5.27 M/uL (4.33-5.43)
[2018-04-20 07:59] LABS: Protime INR 1.34
[2018-04-20 08:07] LABS: Bilirubin Direct 0.1 mg/dL (0-0.2); Bilirubin Total 0.3 mg/dL (0.2-1.0); Magnesium 2.4 mg/dL (1.8-2.4); Potassium 4.2 mmol/L (3.5-5.1); Protein, Total 7.8 g/dL (6.4-8.2)
--- NOTE | 2018-04-20 08:41 | ER ---
Nurse's Notes [facility] Name: Jaiden Swift Age: 67 yrs Sex: Male : 1950 Arrival Date: 04/20/2018 Time: 07:16 Bed 2 Private MD: Leighton Rollins V Diagnosis: Atrial fibrillation and flutter;Chest pain, unspecified Presentation: 04/20 07:18 Presenting complaint: Patient states: left-sided chest pain and palpitations that began aa5 at 0400 today. Pt states "I feel like my heart is irregular". Pt denies SOB, denies nausea and vomiting. 07:18 Transition of care: patient was not received from another setting of care. Onset of aa5 symptoms was April 20, 2018. Risk Assessment: Do you want to hurt yourself or someone else? Patient reports no desire to harm self or others. Initial Sepsis Screen: Does the patient meet any 2 criteria? No. Patient's initial sepsis screen is negative. Does the patient have a suspected source of infection? No. Patient's initial sepsis screen is negative. Care prior to arrival: None. 07:18 Method Of Arrival: Wheelchair aa5 07:18 Acuity: JESSICA 2 aa5 Triage Assessment: 07:18 General: Appears in no apparent distress. uncomfortable, Behavior is calm, cooperative, hj appropriate for age. Pain: Denies pain. Cardiovascular: Heart tones S1 S2 present Capillary refill < 3 seconds Patient's skin is warm and dry. Rhythm is sinus tachycardia. Historical: - Allergies: 07:18 No Known Allergies; aa5 - Home Meds: 07:34 Xarelto 20 mg oral tab 1 tab once daily [Active]; atorvastatin 20 mg oral tab 1 tab aa5 once daily [Active]; metoprolol ER 25mg once a day [Active]; - PMHx: 07:18 High Cholesterol; Hypertension; aa5 07:18 Atrial Fib; aa5 07:18 CVA; aa5 - PSHx: 07:18 None; aa5 - Immunization history:: Adult Immunizations up to date. - Ebola Screening: : No symptoms or risks identified at this time. - Social history:: Smoking status: Patient/guardian denies using tobacco, Patient/guardian denies using alcohol. Screenin:18 Abuse screen: Denies threats or abuse. Nutritional screening: No deficits noted. hj Tuberculosis screening: No symptoms or risk factors identified. Fall Risk None identified. Assessment: 07:18 Pain: Denies pain. Pain began 3 hours ago. hj 07:18 General: Appears in no apparent distress. uncomfortable, Behavior is calm, cooperative, hj appropriate for age. Neuro: Level of Consciousness is awake, alert, obeys commands, Oriented to person, place, time, situation, Appropriate for age. Cardiovascular: Heart tones S1 S2 present Capillary refill < 3 seconds Patient's skin is warm and dry. Respiratory: Airway is patent Respiratory effort is even, unlabored, Respiratory pattern is regular, symmetrical. GI: No signs and/or symptoms were reported involving the gastrointestinal system. : No signs and/or symptoms were reported regarding the genitourinary system. EENT: No signs and/or symptoms were reported regarding the EENT system. Derm: No signs and/or symptoms reported regarding the dermatologic system. Musculoskeletal: No signs and/or symptoms reported regarding the musculoskeletal system. 07:18 Pain: Pain does not radiate. hj 08:20 Reassessment: Patient and/or family updated on plan of care and expected duration. Pain hj level reassessed. Patient is alert, oriented x 3, equal unlabored respirations, skin warm/dry/pink. deneis chest pain;. 09:26 Reassessment: Patient and/or family updated on plan of care and expected duration. Pain hj level reassessed. Patient is alert, oriented x 3, equal unlabored respirations, skin warm/dry/pink. awaiting results and POC; Patient states feeling better. 10:13 General: Appears in no apparent distress. comfortable, Behavior is calm, cooperative, aj appropriate for age. Pain: Denies pain. Neuro: Level of Consciousness is awake, alert, obeys commands, Oriented to person, place, time, situation, Appropriate for age. Cardiovascular: Reports Chest pain resolved Rhythm is sinus tachycardia. Respiratory: Airway is patent Respiratory effort is even, unlabored, Respiratory pattern is regular, symmetrical. Derm: Skin is intact, is healthy with good turgor, Skin is pink, warm \\T\\ dry. normal. Vital Signs: 07:18 BP 105 / 85; Pulse 136; Resp 18 S; Temp 98.4(O); Pulse Ox 100% on R/A; Weight 77.11 kg; hj Height 5 ft. 6 in. (167.64 cm); Pain 0/10; 07:49 BP 109 / 91; Pulse 135; Resp 18; Pulse Ox 100% on R/A; hj 08:00 BP 101 / 86; Pulse 134; aa5 08:30 BP 116 / 87; Pulse 130; Resp 18; Pulse Ox 100% on R/A; hj 09:00 BP 105 / 76; Pulse 129; Resp 18; Pulse Ox 100% on R/A; hj 09:15 BP 131 / 98; Pulse 130; Resp 18; Pulse Ox 100% on R/A; hj 09:29 BP 124 / 100; Pulse 130; Resp 18; Pulse Ox 100% ; hj 10:13 BP 109 / 94; Pulse 132; Resp 20; Temp 98.4; Pulse Ox 99% on R/A; aj 07:18 Body Mass Index 27.44 (77.11 kg, 167.64 cm) ED Course: 07:16 Patient arrived in ED. sb2 07:16 Leighton Rollins MD is Private Physician. sb2 07:17 Billy Zarate MD is Attending Physician. kdr 07:17 Arm band placed on Patient placed in an exam room, on a stretcher. aa5 07:18 Patient has correct armband on for positive identification. Bed in low position. Call aa5 light in reach. Side rails up X2. monitor worker on. Pulse ox on. NIBP on. 07:20 Patient maintains SpO2 saturation greater than 95% on room air. aa5 07:34 Jones Fleming, MANJEET is Primary Nurse. hj 07:40 Triage completed. aa5 07:42 EKG done, by material handling technician. reviewed by Billy Zarate MD. at1 07:42 Initial lab(s) drawn, by ut, sent to lab. Inserted saline lock: 20 gauge in left hj antecubital area, using aseptic technique. Blood collected. 07:58 XRAY Chest (1 view) In Process Unspecified. EDMS 07:58 X-ray completed. Portable x-ray completed in exam room. Patient tolerated procedure kw well. 08:39 Leighton Rollins MD is Hospitalizing Provider. kdr 08:43 called [facility] for admission consultation. patient information given to eb the answering service who will call the audio visual design engineer feather boner. 09:48 Primary Nurse role handed off by Jones Fleming, RN shree 09:48 Omaira Reyes, RN is Primary Nurse. aj 10:13 No provider procedures requiring assistance completed. Patient admitted, IV remains in aj place. 10:43 Report given to Malaika BURROUGHSdietary internship. aj Administered Medications: 07:36 Drug: Lopressor 5 mg Route: IVP; Site: left antecubital; hj 07:36 Drug: NS 0.9% 500 ml Route: IV; Rate: bolus; Site: left antecubital; hj 09:46 Follow up: IV Status: Completed infusion hj 07:50 Drug: Lopressor 5 mg Route: IVP; Site: left antecubital; aa5 08:24 Drug: Lopressor 5 mg Route: IVP; Site: left antecubital; hj 09:45 Follow up: Response: No adverse reaction Outcome: 08:40 Decision to Hospitalize by Provider. kdr 11:15 Admitted to Tele accompanied by tech, family with patient, via wheelchair, with chart, aj Report called to Malaika BURROUGHSdietary internship 11:15 Condition: good 11:15 Instructed on the need for admit, Demonstrated understanding of 11:16 Patient left the ED. aj Signatures: Dispatcher [employer] EDMS Omaira Reyes, RN RN Billy Diego MD MD kdr Calderon, Audri, RN RN aa5 Billie Jones Amanda, wood barrel reconditioner EKG Tat1 Jones Fleming, RN Gisele Tong sb2 Orly Ha Corrections: (The following items were deleted from the chart) 09:47 07:18 BP 105 / 85; Pulse 136bpm; Resp 18bpm; Spontaneous; Pulse Ox 100% RA; aa5
--- NOTE | 2018-04-20 08:41 | RAD REPORT ---
EXAM DESCRIPTION: RAD - Chest Single View - 04/20/2018 8:00 am CLINICAL HISTORY: CHEST PAIN Chest pain. COMPARISON: Chest Single View dated 08/21/2017; Chest Single View dated 05/02/2017; Chest Single View dated 05/02/2017 FINDINGS: Portable technique limits examination quality. The lungs are grossly clear. The heart is normal in size. No displaced fractures. IMPRESSION: No acute intrathoracic process suspected.
--- NOTE | 2018-04-20 08:41 | EDPHYS ---
Physician Documentation [facility] Name: Jaiden Siwft Age: 67 yrs Sex: Male : 1950 Arrival Date: 04/20/2018 Time: 07:16 Bed 2 Private MD: Leighton Rollins V ED Physician Billy Zarate HPI: 04/20 07:37 This 67 yrs old Male presents to ER via Unassigned with complaints of Chest kdr Pain > 30 y/o. 07:37 The patient or guardian reports chest pain that is located primarily in the anterior kdr chest wall, left. Onset: acutely, suddenly, at 04:00. The pain does not radiate. Associated signs and symptoms: Pertinent positives: dizziness, lightheadedness, near-syncope, palpitations, Pertinent negatives: abdominal pain, cough, diaphoresis, nausea, shortness of breath. The chest pain is described as aching, dull, a pressure. Duration: The patient or guardian reports a single episode, that is still ongoing, but improving. Modifying factors: The symptoms are alleviated by nothing. the symptoms are aggravated by activity. Severity of pain: At its worst the pain was moderate in the emergency department the pain has improved markedly. The patient has experienced similar episodes in the past, a few times. The patient has not recently seen a physician. Historical: - Allergies: 07:18 No Known Allergies; aa5 - Home Meds: 07:34 Xarelto 20 mg oral tab 1 tab once daily [Active]; atorvastatin 20 mg oral tab 1 tab aa5 once daily [Active]; metoprolol ER 25mg once a day [Active]; - PMHx: 07:18 High Cholesterol; Hypertension; aa5 07:18 Atrial Fib; aa5 07:18 CVA; aa5 - PSHx: 07:18 None; aa5 - Immunization history:: Adult Immunizations up to date. - Ebola Screening: : No symptoms or risks identified at this time. - Social history:: Smoking status: Patient/guardian denies using tobacco, Patient/guardian denies using alcohol. ROS: 07:37 Constitutional: Negative for fever, chills, and weight loss, Eyes: Negative for injury, kdr pain, redness, and discharge, Neck: Negative for injury, pain, and swelling, Respiratory: Negative for shortness of breath, cough, wheezing, and pleuritic chest pain, Abdomen/GI: Negative for abdominal pain, nausea, vomiting, diarrhea, and constipation, Back: Negative for injury and pain, : Negative for injury, bleeding, discharge, and swelling, MS/Extremity: Negative for injury and deformity, Skin: Negative for injury, rash, and discoloration, Neuro: Negative for headache, weakness, numbness, tingling, and seizure activity. Psych: Negative for depression, anxiety, suicide ideation, homicidal ideation, and hallucinations, Allergy/Immunology: Negative for hives, rash, and allergies, Endocrine: Negative for neck swelling, polydipsia, polyuria, polyphagia, and marked weight changes, Hematologic/Lymphatic: Negative for swollen nodes, abnormal bleeding, and unusual bruising. 07:37 Cardiovascular: Positive for chest pain, palpitations, Negative for edema, orthopnea. Exam: 07:37 Constitutional: This is a well developed, well nourished patient who is awake, alert, kdr and in no acute distress. Head/Face: Normocephalic, atraumatic. Eyes: Pupils equal round and reactive to light, extra-ocular motions intact. Lids and lashes normal. Conjunctiva and sclera are non-icteric and not injected. Cornea within normal limits. Periorbital areas with no swelling, redness, or edema. Neck: Trachea midline, no thyromegaly or masses palpated, and no cervical lymphadenopathy. Supple, full range of motion without nuchal rigidity, or vertebral point tenderness. No Meningismus. Chest/axilla: Normal chest wall appearance and motion. Nontender with no deformity. No lesions are appreciated. Respiratory: Lungs have equal breath sounds bilaterally, clear to auscultation and percussion. No rales, rhonchi or wheezes noted. No increased work of breathing, no retractions or nasal flaring. Abdomen/GI: Soft, non-tender, with normal bowel sounds. No distension or tympany. No guarding or rebound. No evidence of tenderness throughout. Back: No spinal tenderness. No costovertebral tenderness. Full range of motion. Skin: Warm, dry with normal turgor. Normal color with no rashes, no lesions, and no evidence of cellulitis. MS/ Extremity: Pulses equal, no cyanosis. Neurovascular intact. Full, normal range of motion. Neuro: Awake and alert, GCS 15, oriented to person, place, time, and situation. Cranial nerves II-XII grossly intact. Motor strength 5/5 in all extremities. Sensory grossly intact. Cerebellar exam normal. Normal gait. Psych: Awake, alert, with orientation to person, place and time. Behavior, mood, and affect are within normal limits. 07:37 Cardiovascular: Rate: tachycardic, actual rate is 125 bpm, Rhythm: regular, Pulses: no pulse deficits are appreciated, Heart sounds: normal, Edema: is not appreciated. Vital Signs: 07:18 BP 105 / 85; Pulse 136; Resp 18 S; Temp 98.4(O); Pulse Ox 100% on R/A; Weight 77.11 kg; hj Height 5 ft. 6 in. (167.64 cm); Pain 0/10; 07:49 BP 109 / 91; Pulse 135; Resp 18; Pulse Ox 100% on R/A; hj 08:00 BP 101 / 86; Pulse 134; aa5 08:30 BP 116 / 87; Pulse 130; Resp 18; Pulse Ox 100% on R/A; hj 09:00 BP 105 / 76; Pulse 129; Resp 18; Pulse Ox 100% on R/A; hj 09:15 BP 131 / 98; Pulse 130; Resp 18; Pulse Ox 100% on R/A; hj 09:29 BP 124 / 100; Pulse 130; Resp 18; Pulse Ox 100% ; hj 10:13 BP 109 / 94; Pulse 132; Resp 20; Temp 98.4; Pulse Ox 99% on R/A; aj 07:18 Body Mass Index 27.44 (77.11 kg, 167.64 cm) hj MDM: 08:40 Patient medically screened. kdr 08:41 Data reviewed: vital signs, nurses notes, lab test result(s), EKG, radiologic studies. kdr Counseling: I had a detailed discussion with the patient and/or guardian regarding: the historical points, exam findings, and any diagnostic results supporting the discharge/admit diagnosis, lab results, radiology results, the need for further work-up and treatment in the hospital. 04/20 07:35 Order name: Basic Metabolic Panel kdr 04/20 07:35 Order name: CBC with Diff kdr 04/20 07:35 Order name: LFT's kdr 04/20 07:35 Order name: Magnesium kdr 04/20 07:35 Order name: NT PRO-BNP [facility] 04/20 07:35 Order name: PT-INR [facility] 04/20 07:35 Order name: Ptt, Activated [facility] 04/20 07:35 Order name: Troponin (emerg Dept Use Only) [facility] 04/20 07:35 Order name: XRAY Chest (1 view) [facility] 04/20 07:35 Order name: EKG; Complete Time: 07:36 [facility] 04/20 08:46 Order name: Troponin I [facility] 04/20 08:46 Order name: Troponin I [facility] 04/20 07:35 Order name: Cardiac monitoring; Complete Time: 07:36 [facility] 04/20 07:35 Order name: EKG - Nurse/Tech; Complete Time: 07:36 [facility] 04/20 07:35 Order name: IV Saline Lock; Complete Time: 07:36 [facility] 04/20 07:35 Order name: Labs collected and sent; Complete Time: 07:36 [facility] 04/20 07:35 Order name: O2 Per Protocol; Complete Time: 07:36 [facility] 04/20 07:35 Order name: O2 Sat Monitoring; Complete Time: 07:36 [facility] 04/20 08:46 Order name: CONS Physician Consult [facility] 04/20 08:46 Order name: Regular [facility] 04/20 08:46 Order name: EKG Electrocardiogram [facility] 04/20 08:46 Order name: EKG Electrocardiogram [facility] 04/20 08:46 Order name: EKG Electrocardiogram [facility] 04/20 08:46 Order name: EKG Electrocardiogram [facility] 04/20 08:46 Order name: EKG Electrocardiogram [facility] Administered Medications: 07:36 Drug: Lopressor 5 mg Route: IVP; Site: left antecubital; hj 07:36 Drug: NS 0.9% 500 ml Route: IV; Rate: bolus; Site: left antecubital; hj 09:46 Follow up: IV Status: Completed infusion hj 07:50 Drug: Lopressor 5 mg Route: IVP; Site: left antecubital; aa5 08:24 Drug: Lopressor 5 mg Route: IVP; Site: left antecubital; hj 09:45 Follow up: Response: No adverse reaction Disposition: 04/20/18 08:40 Hospitalization ordered by Leighton Rollins for Inpatient Admission. Preliminary diagnosis are Atrial fibrillation and flutter, Chest pain, unspecified. - Bed requested for Telemetry/MedSurg (Inpatient). - Status is Inpatient Admission. aj - Condition is Fair. - Problem is new. - Symptoms have improved. UTI on Admission? No Signatures: Dispatcher [employer] EDOmaira Berkowitz, RN Billy Rowell MD MD [facility] Melissa Ponce RN RN aa5 Jones Fleming RN MANJEET Orly Ha Corrections: (The following items were deleted from the chart) 08:51 08:40 Hospitalization Ordered by Leighton Rollins MD for Inpatient Admission. Preliminary eb diagnosis is Atrial fibrillation and flutter; Chest pain, unspecified. Bed requested for Telemetry/MedSurg (Inpatient). Status is Inpatient Admission. Condition is Fair. Problem is new. Symptoms have improved. UTI on Admission? No. kdr 10:09 08:51 04/20/2018 08:40 Hospitalization Ordered by Leighton Rollins MD for Inpatient eb Admission. Preliminary diagnosis is Atrial fibrillation and flutter; Chest pain, unspecified. Bed requested for Telemetry/MedSurg (Inpatient). Status is Inpatient Admission. Condition is Fair. Problem is new. Symptoms have improved. UTI on Admission? No. eb 11:16 10:09 04/20/2018 08:40 Hospitalization Ordered by Leighton Rollins MD for Inpatient aj Admission. Preliminary diagnosis is Atrial fibrillation and flutter; Chest pain, unspecified. Bed requested for Telemetry/MedSurg (Inpatient). Status is Inpatient Admission. Condition is Fair. Problem is new. Symptoms have improved. UTI on Admission? No. eb
[2018-04-20] MEDS ORDERED: ONDANSETRON 4 MG/2 ML VIAL IV PRN (08:44)
[2018-04-20] MEDS ORDERED: ACETAMINOPHEN 500 MG TAB PO PRN (08:44)
[2018-04-20] MEDS: ASPIRIN EC 81 MG TAB PO SCH (09:00)
--- NOTE | 2018-04-20 14:42 | P.HP ---
Certification for Inpatient Patient admitted to: Inpatient With expected LOS: >2 Midnights Practitioner: I am a practitioner with admitting privileges, knowledge of patient current condition, hospital course, and medical plan of care. Services: Services provided to patient in accordance with Admission requirements found in Title 42 Section 412.3 of the Code of Federal Regulations Patient History Date of Service: 04/20/18 Reason for admission: PALPITATION History of Present Illness: MR. DUARTE HAS A FIB, FLUTTER , HAS BEEN ON ORAL MEDS. TOPROL AND XARELTO. HE CAME WITH ONE DAY FOR PALPITATIONS. HE IS BACK IN A FIB. HE HAS NO CHEST PAIN. Allergies No Known Allergies Allergy (Unverified 04/20/18 08:53) Home Medications: Atorvastatin Calcium [Lipitor] 20 mg PO BEDTIME 04/20/18 Metoprolol Succinate [Toprol Xl] 25 mg PO DAILY 04/20/18 Rivaroxaban [Xarelto] 20 mg PO DAILY AFTER SUPPER 04/20/18 - Past Medical/Surgical History Has patient received pneumonia vaccine in the past: Yes Diabetic: No -: high cholesterol -: hypertension -: atrial fib -: CVA -: afib - Family History Mother -: Heart disease - Social History Smoking Status: Never smoker Alcohol use: No CD- Drugs: No Caffeine use: Yes Place of Residence: Home Review of Systems 10-point ROS is otherwise unremarkable Cardiovascular: Palpitations Physical Examination - Vital Signs Temperature: 97.9 F Blood Pressure: 117/69 Pulse: 133 Respirations: 20 Pulse Ox (%): 99 - Physical Exam General: Alert, Mild distress HEENT: Atraumatic, PERRLA, Mucous membr. moist/pink, EOMI, Sclerae nonicteric Neck: Supple, 2+ carotid pulse no bruit, No LAD, Without JVD or thyroid abnormality Respiratory: Clear to auscultation bilaterally, Normal air movement Cardiovascular: Irregular heart rate/rhythm Gastrointestinal: Normal bowel sounds, No tenderness Musculoskeletal: No tenderness Integumentary: No rashes Neurological: Normal gait, Normal speech, Normal strength at 5/5 x4 extr, Normal tone, Normal affect Lymphatics: No axilla or inguinal lymphadenopathy - Studies Laboratory Data (last 24 hrs) 04/20/18 07:31: PT 15.8 H, INR 1.34, APTT 34.6 07/13/18 07:31: WBC 10.6, Hgb 15.6, Hct 45.4, Plt Count 268 04/20/18 07:31: Sodium 145, Potassium 4.2, BUN 15, Creatinine 1.30, Glucose 135 H, Magnesium 2.4, Total Bilirubin 0.3, AST 26, ALT 35, Alkaline Phosphatase 75 Assessment and Plan - Problems (Diagnosis) (1) Atrial fib/flutter, transient Current Visit: Yes Status: Acute Plan: SOTALOL XARELTO STOP TOPROL. CONSULT CARDIOLOGY. - Advance Directives Does patient have a Living Will: No Does patient have a Durable POA for Healthcare: No
[2018-04-20] MEDS ORDERED: RIVAROXABAN 20 MG TABLET PO SCH (17:30)
[2018-04-20] MEDS: SOTALOL HCL 80 MG TAB PO SCH (17:40)
[2018-04-20] MEDS ORDERED: SOTALOL HCL 80 MG TAB PO SCH (18:00)
[2018-04-20] MEDS ORDERED: ATORVASTATIN 20 MG TAB PO SCH (21:00)
[2018-04-21 00:53] LABS: Urine Appearance CLEAR; Urine Bilirubin NEGATIVE (NEG); Urine Blood 1+ (NEG); Urine Color YELLOW; Urine Glucose NEGATIVE (NEG); Urine Microscopic Reflex ORDER UMIC; Urine Protein NEGATIVE (NEG); Urine Urobilinogen 0.2 mg/dL (0.2-1.0)
[2018-04-21 02:32] LABS: Urine Bacteria <20 /HPF (NONE SEEN); Urine Culture Reflex Order NOT NEEDED; Urine RBC <5 /HPF (NONE SEEN)
[2018-04-21 04:49] LABS: Absolute Lymphocytes (CBC) 3.1 K/uL (0.7-4.9); Absolute Monocytes 0.8 K/uL (0.1-1.3); Absolute Neutrophil 4.9 K/uL (1.8-8.0); Basophils % 0.4 % (0-1.3); Eosinophils % 2.1 % (0-4.4); Hematocrit 40.5 % (39.6-49.0); Lymphocytes % 34.1 % (15.3-44.8); MCH 30.1 pg (27.0-35.0); MCV 86.7 fL (80-100); MPV 9.1 fL (7.6-11.3); Monocytes % 9.3 % (3.3-12.3); RBC Red Blood Cell Count 4.67 M/uL (4.33-5.43)
[2018-04-21 05:05] LABS: Potassium 4.1 mmol/L (3.5-5.1)
[2018-04-21] MEDS: SOTALOL HCL 80 MG TAB PO SCH ×2 (06:01→14:01)
[2018-04-21] MEDS: ASPIRIN EC 81 MG TAB PO SCH (08:12)
--- NOTE | 2018-04-21 10:27 | EKG ---
Test Date: 2018-04-21 Test Time: 08:19:48 Engineering Scientist: SHEYLA MEASUREMENT RESULTS: Intervals: Rate: 52 OH: 142 QRSD: 78 QT: 494 QTc: 459 [place]: P: 45 OH: 142 QRS: -25 T: -2 INTERPRETIVE STATEMENTS: Sinus bradycardia Minimal voltage criteria for LVH, may be normal variant Borderline ECG Compared to ECG 04/20/2018 16:22:05 Left ventricular hypertrophy now present Sinus rhythm no longer present Electronically Signed On 04-21-18 10:27:09 CDT by Drake Swan
--- NOTE | 2018-04-21 10:29 | EKG ---
Test Date: 2018-04-20 Test Time: 16:22:05 Input Output Clerk: RAIMUNDO MEASUREMENT RESULTS: Intervals: Rate: 60 KS: 148 QRSD: 72 QT: 410 QTc: 410 [place]: P: 53 KS: 148 QRS: -20 T: -2 INTERPRETIVE STATEMENTS: Normal sinus rhythm Normal ECG Compared to ECG 04/20/2018 07:28:58 Sinus tachycardia no longer present Short KS interval no longer present Electronically Signed On 04-21-18 10:27:20 CDT by Drake Swan
--- NOTE | 2018-04-21 10:31 | EKG ---
Test Date: 2018-04-20 Test Time: 07:28:58 Commercial Installer: TOMMY MEASUREMENT RESULTS: Intervals: Rate: 137 CT: 104 QRSD: 72 QT: 298 QTc: 449 [place]: P: CT: 104 QRS: -9 T: 30 INTERPRETIVE STATEMENTS: Sinus tachycardia with short CT Otherwise normal ECG Compared to ECG 08/21/2017 07:39:[address] interval now present Sinus rhythm no longer present Electronically Signed On 04-21-18 10:27:37 CDT by Drake Swan
--- NOTE | 2018-04-21 13:27 | P.DS ---
Admission Date: 04/20/18 Discharge Date: 04/21/18 Disposition: ROUTINE DISCHARGE Discharge Condition: FAIR Reason for Admission: PALPITATION - Problems (1) Atrial fib/flutter, transient Current Visit: Yes Status: Acute Brief History of Present Illness: MR. SWIFT HAS A FIB, FLUTTER , HAS BEEN ON ORAL MEDS. TOPROL AND XARELTO. HE CAME WITH ONE DAY FOR PALPITATIONS. HE IS BACK IN A FIB. HE HAS NO CHEST PAIN. Mr. Swift is doing great. Has no se of meds. I started Betapace yesterday. He is stable to go home. Dr. Swan agreed. Vital Signs/Physical Exam: Temp Pulse Resp BP Pulse Ox 97.4 F 53 20 169/81 H 98 04/21/18 08:00 04/21/18 08:00 04/21/18 08:00 04/21/18 08:00 04/21/18 08:00 Laboratory Data at Discharge: WBC 9.0 K/uL (4.3-10.9) D 04/21/18 04:07 Hgb 14.1 g/dL (13.6-17.9) 04/21/18 04:07 Hct 40.5 % (39.6-49.0) 04/21/18 04:07 Plt Count 214 K/uL (152-406) D 04/21/18 04:07 PT 15.8 SECONDS (9.5-12.5) H 04/20/18 07:31 INR 1.34 04/20/18 07:31 APTT 34.6 SECONDS (24.3-36.9) 04/20/18 07:31 Sodium 144 mmol/L (136-145) 04/21/18 04:07 Potassium 4.1 mmol/L (3.5-5.1) 04/21/18 04:07 BUN 17 mg/dL (7-18) 04/21/18 04:07 Creatinine 1.10 mg/dL (0.55-1.3) 04/21/18 04:07 Glucose 97 mg/dL (74-106) 04/21/18 04:07 Magnesium 2.4 mg/dL (1.8-2.4) 04/20/18 07:31 Total Bilirubin 0.3 mg/dL (0.2-1.0) 04/20/18 07:31 AST 26 U/L (15-37) 04/20/18 07:31 ALT 35 U/L (12-78) 04/20/18 07:31 Alkaline Phosphatase 75 U/L (45-117) 04/20/18 07:31 Troponin I 0.25 ng/mL (0.0-0.045) H 04/20/18 15:40 Home Medications: Atorvastatin Calcium [Lipitor*] 20 mg PO BEDTIME 04/20/18 Rivaroxaban [Xarelto] 20 mg PO DAILY AFTER SUPPER 04/20/18 Sotalol HCl [Betapace*] 80 mg PO BID 6AM 6PM tab 04/21/18 Sotalol HCl [Sotalol AF] 80 mg PO BID #60 tablet 04/21/18 New Medications: Sotalol HCl [Sotalol AF] 80 mg PO BID #60 tablet Diet: AHA
--- NOTE | 2018-04-21 13:33 | CON ---
Date of Consultation: 04/21/2018 The patient was admitted to Dr. Rollins's service on 04/20/2018. The patient was seen on 04/21/2018. Reason For Consultation: Atrial fibrillation and flutter. History Of Present Illness: Mr. Swift is a 67-year-old white male has known paroxysmal atrial fibr illation. He had a stroke in September of 2017 with his atrial fibrillation. He has a history of hyp ertension, dyslipidemia, has been controlled well on metoprolol and Xarelto. He takes Lipitor for hi s dyslipidemia. Had recent cardiac workup in February of 2019 in our office, which was normal without any evidence of ischemia or cardiomyopathy. He came back with recurrent atrial fibrillation. I put him on Betapace yesterday 80 mg 1 p.o. b.i.d. and he is in normal rhythm now. No symptoms. No chest pa in with his atrial fibrillation. Allergies: NONE. Review of Systems: Negative. Social History: Negative for tobacco, alcohol, or drug use. Family History: Noncontributory. Medications: At home include Lipitor, Xarelto, and metoprolol. Allergies: NONE. Physical Examination: Vital Signs: Stable. He was afebrile. HEENT: Negative. Neck: Supple with no bruit. Chest: Clear to auscultation and percussion. Cardiac: Revealed a regular rhythm and rate without any murmurs, gallops, or rubs. Abdomen: Benign. Extremities: Revealed no clubbing, cyanosis, or edema. Diagnostic Data: Troponin was 0.25. BNP was 405. EKG now is normal. Chest x-ray is normal. Impression And Plan: 1.Atrial fibrillation that had failed beta blockers. We will put him on Betapace 80 mg 1 p.o. b.i.d . Continue the Xarelto. 2.Dyslipidemia, on Lipitor. 3.History of cerebrovascular accident that is stable with no residual. The patient can go home when ever it is okay with Dr. Rollins. We will see him in the office in the next 2 weeks. He had recent ne gative cardiac workup in the office in February and he does not have to have that repeated. DINESH/LEOLA Voice ID: [id number] Report ID: [id number]
== END 2018-04-21 15:50 | disposition home or self-care (01) | DRG 310 ==
LOC: ER 07:14 → ERHOLD 08:44 → 2ND 10:46
PROVIDERS: ADMIT Internal Medicine; ATTEND Internal Medicine
DX: I48.0 Paroxysmal atrial fibrillation (principal); I48.92 Unspecified atrial flutter; I10 Essential (primary) hypertension; E78.5 Hyperlipidemia, unspecified; Z86.73 Personal history of transient ischemic attack (TIA), and cerebral infarction without residual deficits; Z79.01 Long term (current) use of anticoagulants
CPT/HCPCS: 36415; 71045; 80048; 80076; 81003; 81015; 83735; 83880; 84484; 85025; 85610; 85730; 93005; 96361; 96374; 99285

== ENCOUNTER 2018-05-28 05:06 | Observation (INO) | payer OTHER ==
--- OUTSIDE RECORDS SUMMARY | 2018-05-28 05:08 | XMS REPORT ---
:1950 [facility] Address [address] [place] [address] Care Team Providers Name Role Phone SALVATORE [...] Comments SODIUM (BEAKER) (test 138 meq/L 136-145 azmh=960) POTASSIUM (BEAKER) (test 3.7 meq/L 3.5-5.1 iwvd=447) CHLORIDE (BEAKER) (test 107 meq/L 98-107 ycbf=007) CO2 (BEAKER) (test rvqp=185) 20 meq/L 22-29 BLOOD UREA NITROGEN (BEAKER) 13 mg/dL 7-21 (test qyxe=418) CREATININE (BEAKER) (test 1.04 mg/dL 0.57-1.25 hynh=509) GLUCOSE RANDOM (BEAKER) 88 mg/dL 70-105 (test wpxw=223) CALCIUM (BEAKER) (test 8.7 mg/dL 8.4-10.2 yese=520) EGFR (BEAKER) (test 71 mL/min/1.73 sq m ESTIMATED GFR IS NOT cbca=4636) ACCURATE CREATININE CLEARANCE IN PREDICTING GLOMERULAR FILTRATION RATE. ESTIMATED GFR IS NOT APPLICABLE FOR DIALYSIS PATIENTS. CBC W/PLT COUNT & AUTO [id number] 06:04:00 Test Item Value Reference Range Comments WHITE BLOOD CELL COUNT (BEAKER) (test bnih=262) 9.0 K/ L 3.5-10.5 RED BLOOD CELL COUNT (BEAKER) (test mlax=086) 4.86 M/ L 4.63-6.08 HEMOGLOBIN (BEAKER) (test feiy=810) 13.8 GM/DL 13.7-17.5 HEMATOCRIT (BEAKER) (test twlc=011) 41.3 % 40.1-51.0 MEAN CORPUSCULAR VOLUME (BEAKER) (test bfdj=304) 85.0 fL 79.0-92.2 MEAN CORPUSCULAR HEMOGLOBIN (BEAKER) (test 28.4 pg 25.7-32.2 jkzg=447) MEAN CORPUSCULAR HEMOGLOBIN CONC (BEAKER) (test 33.4 GM/DL 32.3-36.5 vcij=714) RED CELL DISTRIBUTION WIDTH (BEAKER) (test 12.7 % 11.6-14.4 ztxa=709) PLATELET COUNT (BEAKER) (test awee=385) 240 K/CU MM 150-450 MEAN PLATELET VOLUME (BEAKER) (test mgbz=436) 11.0 fL 9.4-12.4 NUCLEATED RED BLOOD CELLS (BEAKER) (test 0 /100 WBC 0-0 ooim=793) NEUTROPHILS RELATIVE PERCENT (BEAKER) (test 48 % erkt=317) LYMPHOCYTES RELATIVE PERCENT (BEAKER) (test 34 % egsb=514) MONOCYTES RELATIVE PERCENT (BEAKER) (test 11 % fixi=095) EOSINOPHILS RELATIVE PERCENT (BEAKER) (test 6 % eugg=039) BASOPHILS RELATIVE PERCENT (BEAKER) (test 1 % ybjo=783) NEUTROPHILS ABSOLUTE COUNT (BEAKER) (test 4.35 K/ L 1.78-5.38 hcbn=051) LYMPHOCYTES ABSOLUTE COUNT (BEAKER) (test 3.04 K/ L 1.32-3.57 dqup=965) MONOCYTES ABSOLUTE COUNT (BEAKER) (test 0.99 K/ L 0.30-0.82 giuh=840) EOSINOPHILS ABSOLUTE COUNT (BEAKER) (test 0.51 K/ L 0.04-0.54 wnzy=533) BASOPHILS ABSOLUTE COUNT (BEAKER) (test 0.06 K/ L 0.01-0.08 csys=904) IMMATURE GRANULOCYTES-RELATIVE PERCENT (BEAKER) 0 % 0-1 (test gdqj=3558) BASIC METABOLIC [id number] 06:22:00 Test Item Value Reference Range Comments SODIUM (BEAKER) (test 138 meq/L 136-145 oflq=993) POTASSIUM (BEAKER) (test 3.5 meq/L 3.5-5.1 gyop=956) CHLORIDE (BEAKER) (test 107 meq/L 98-107 znmj=776) CO2 (BEAKER) (test 21 meq/L 22-29 yjcs=926) BLOOD UREA NITROGEN 10 mg/dL 7-21 (BEAKER) (test sejl=195) CREATININE (BEAKER) (test 0.85 mg/dL 0.57-1.25 mhxo=411) GLUCOSE RANDOM (BEAKER) 104 mg/dL 70-105 (test opvc=794) CALCIUM (BEAKER) (test 8.5 mg/dL 8.4-10.2 btgl=822) EGFR (BEAKER) (test 90 mL/min/1.73 sq m ESTIMATED GFR IS NOT upnl=0229) ACCURATE CREATININE CLEARANCE IN PREDICTING GLOMERULAR FILTRATION RATE. ESTIMATED GFR IS NOT APPLICABLE FOR DIALYSIS PATIENTS. CBC W/PLT COUNT & AUTO [id number] 06:10:00 Test Item Value Reference Range Comments WHITE BLOOD CELL COUNT (BEAKER) (test hvzq=123) 10.4 K/ L 3.5-10.5 RED BLOOD CELL COUNT (BEAKER) (test dzhz=845) 4.72 M/ L 4.63-6.08 HEMOGLOBIN (BEAKER) (test wypy=310) 13.5 GM/DL 13.7-17.5 HEMATOCRIT (BEAKER) (test fltl=399) 40.1 % 40.1-51.0 MEAN CORPUSCULAR VOLUME (BEAKER) (test jcnz=236) 85.0 fL 79.0-92.2 MEAN CORPUSCULAR HEMOGLOBIN (BEAKER) (test 28.6 pg 25.7-32.2 qhbx=921) MEAN CORPUSCULAR HEMOGLOBIN CONC (BEAKER) (test 33.7 GM/DL 32.3-36.5 cjzl=882) RED CELL DISTRIBUTION WIDTH (BEAKER) (test 12.7 % 11.6-14.4 gjls=996) PLATELET COUNT (BEAKER) (test yfze=047) 232 K/CU MM 150-450 MEAN PLATELET VOLUME (BEAKER) (test uclr=351) 10.6 fL 9.4-12.4 NUCLEATED RED BLOOD CELLS (BEAKER) (test 0 /100 WBC 0-0 fpbr=228) NEUTROPHILS RELATIVE PERCENT (BEAKER) (test 70 % wnlp=294) LYMPHOCYTES RELATIVE PERCENT (BEAKER) (test 18 % ftrl=709) MONOCYTES RELATIVE PERCENT (BEAKER) (test 10 % hani=651) EOSINOPHILS RELATIVE PERCENT (BEAKER) (test 1 % bsda=260) BASOPHILS RELATIVE PERCENT (BEAKER) (test 1 % jein=308) NEUTROPHILS ABSOLUTE COUNT (BEAKER) (test 7.30 K/ L 1.78-5.38 culn=047) LYMPHOCYTES ABSOLUTE COUNT (BEAKER) (test 1.83 K/ L 1.32-3.57 dplw=845) MONOCYTES ABSOLUTE COUNT (BEAKER) (test 1.03 K/ L 0.30-0.82 lyqo=514) EOSINOPHILS ABSOLUTE COUNT (BEAKER) (test 0.15 K/ L 0.04-0.54 fryf=427) BASOPHILS ABSOLUTE COUNT (BEAKER) (test 0.06 K/ L 0.01-0.08 hnzk=131) IMMATURE GRANULOCYTES-RELATIVE PERCENT (BEAKER) 0 % 0-1 (test uwus=9973) [id number] 02:36:00 Test Item Value Reference Range Comments RPR SCREEN (BEAKER) (test oxca=315) Nonreactive Nonreactive HEMOGLOBIN [id number] 15:31:00 Test Item Value Reference Range Comments HEMOGLOBIN A1C (BEAKER) (test gejd=390) 5.9 % 4.3-6.1 VITAMIN [id number] 15:21:00 Test Item Value Reference Range Comments VITAMIN B12 (BEAKER) (test gqgw=452) 296 pg/mL 213-816 TSH/FREE T4 IF [id number] 15:21:00 Test Item Value Reference Range Comments THYROID STIMULATING HORMONE (BEAKER) (test 1.26 uIU/mL 0.35-4.94 ueir=616) CREATINE KINASE (CK), TOTAL AND [id number] 15:00:00 Test Item Value Reference Range Comments CREATINE KINASE TOTAL (BEAKER) (test vnyt=292) 195 U/L 29-200 CREATINE KINASE-MB (BEAKER) (test jtnj=472) 1.6 ng/mL 0.0-6.6 CREATINE KINASE-MB INDEX (BEAKER) (test gkmh=491) 0.8 % Effective 08/26/2014: CK-MB Reference Range ChangeNew: 0.0-6.6 Previous: 0.0- 4.9CK-MB Reference Range:<6.7 Normal6.7-10.0 Borderline>10.0 AbnormalTROPONIN [id number] 15:00:00 Test Item Value Reference Range Comments TROPONIN I (BEAKER) (test dkmo=896) 0.11 ng/mL 0.00-0.03 Effective 08/26/2014: Reference Range [...] NATRIURETIC PEPTIDE (BEAKER) (test 185 pg/mL 0-100 tchn=650) HEPATIC FUNCTION [id number] 14:59:00 Test Item Value Reference Range Comments TOTAL PROTEIN (BEAKER) (test bblz=734) 6.8 gm/dL 6.0-8.3 ALBUMIN (BEAKER) (test gusr=2076) 4.1 g/dL 3.5-5.0 BILIRUBIN TOTAL (BEAKER) (test zhri=095) 0.9 mg/dL 0.2-1.2 BILIRUBIN DIRECT (BEAKER) (test wsec=271) 0.3 mg/dL 0.1-0.5 ALKALINE PHOSPHATASE (BEAKER) (test ihue=090) 53 U/L 40-150 AST (SGOT) (BEAKER) (test yyeu=474) 27 U/L 5-34 ALT (SGPT) (BEAKER) (test dzrj=786) 36 U/L 6-55 LIPID [id number] 04:13:00 Test Item Value Reference Range Comments TRIGLYCERIDES (BEAKER) (test oddu=507) 128 mg/dL CHOLESTEROL (BEAKER) (test iygz=171) 176 mg/dL HDL CHOLESTEROL (BEAKER) (test aoiu=933) 31 mg/dL LDL CHOLESTEROL CALCULATED (BEAKER) (test 119 mg/dL sele=776) Triglyceride Reference Range: Low Risk <150 Borderline 150- 199 High Risk 200-499 Very High Risk >=500Cholesterol Reference Range: Low Risk <200 Borderline 200-239 High Risk > 240HDL Cholesterol Reference Range: Low Risk >=60 High Risk <40LDL Cholesterol Reference Range: Optimal <100 Near Optimal 100-129 Borderline 130-159 High 160-189 Very High >=190 FastingBASIC METABOLIC [id number] 04:13:00 Test Item Value Reference Range Comments SODIUM (BEAKER) (test 140 meq/L 136-145 fvsn=253) POTASSIUM (BEAKER) (test 3.7 meq/L 3.5-5.1 socu=051) CHLORIDE (BEAKER) (test 111 meq/L 98-107 raju=918) CO2 (BEAKER) (test 22 meq/L 22-29 ltms=167) BLOOD UREA NITROGEN 13 mg/dL 7-21 (BEAKER) (test tfdk=526) CREATININE (BEAKER) (test 0.93 mg/dL 0.57-1.25 cktf=846) GLUCOSE RANDOM (BEAKER) 82 mg/dL 70-105 (test vcwl=309) CALCIUM (BEAKER) (test 8.0 mg/dL 8.4-10.2 ijyo=121) EGFR (BEAKER) (test 81 mL/min/1.73 sq m ESTIMATED GFR IS NOT imnk=7686) ACCURATE CREATININE CLEARANCE IN PREDICTING GLOMERULAR FILTRATION RATE. ESTIMATED GFR IS NOT APPLICABLE FOR DIALYSIS PATIENTS. FastingCBC W/PLT COUNT & AUTO [id number] 03:54:00 Test Item Value Reference Range Comments WHITE BLOOD CELL COUNT (BEAKER) (test zcyf=444) 10.5 K/ L 3.5-10.5 RED BLOOD CELL COUNT (BEAKER) (test syxh=764) 3.98 M/ L 4.63-6.08 HEMOGLOBIN (BEAKER) (test iezz=040) 11.6 GM/DL 13.7-17.5 HEMATOCRIT (BEAKER) (test yafa=053) 34.6 % 40.1-51.0 MEAN CORPUSCULAR VOLUME (BEAKER) (test fjeb=577) 86.9 fL 79.0-92.2 MEAN CORPUSCULAR HEMOGLOBIN (BEAKER) (test 29.1 pg 25.7-32.2 newt=918) MEAN CORPUSCULAR HEMOGLOBIN CONC (BEAKER) (test 33.5 GM/DL 32.3-36.5 fkoc=129) RED CELL DISTRIBUTION WIDTH (BEAKER) (test 12.7 % 11.6-14.4 ekon=837) PLATELET COUNT (BEAKER) (test ydsi=780) 200 K/CU MM 150-450 MEAN PLATELET VOLUME (BEAKER) (test almt=167) 11.1 fL 9.4-12.4 NUCLEATED RED BLOOD CELLS (BEAKER) (test 0 /100 WBC 0-0 jzqr=353) NEUTROPHILS RELATIVE PERCENT (BEAKER) (test 70 % lsoy=760) LYMPHOCYTES RELATIVE PERCENT (BEAKER) (test 20 % vxrp=528) MONOCYTES RELATIVE PERCENT (BEAKER) (test 8 % rtag=473) EOSINOPHILS RELATIVE PERCENT (BEAKER) (test 1 % nmjw=377) BASOPHILS RELATIVE PERCENT (BEAKER) (test 0 % qmjq=699) NEUTROPHILS ABSOLUTE COUNT (BEAKER) (test 7.38 K/ L 1.78-5.38 kavi=666) LYMPHOCYTES ABSOLUTE COUNT (BEAKER) (test 2.10 K/ L 1.32-3.57 jves=617) MONOCYTES ABSOLUTE COUNT (BEAKER) (test 0.88 K/ L 0.30-0.82 eemu=347) EOSINOPHILS ABSOLUTE COUNT (BEAKER) (test 0.09 K/ L 0.04-0.54 qvuw=352) BASOPHILS ABSOLUTE COUNT (BEAKER) (test 0.04 K/ L 0.01-0.08 bmee=622) IMMATURE GRANULOCYTES-RELATIVE PERCENT (BEAKER) 0 % 0-1 (test nzrf=7413) BASIC METABOLIC [id number] 16:31:00 Test Item Value Reference Range Comments SODIUM (BEAKER) (test 140 meq/L 136-145 soya=873) POTASSIUM (BEAKER) (test 4.5 meq/L 3.5-5.1 Specimen slightly nvyu=063) hemolyzed CHLORIDE (BEAKER) (test 108 meq/L 98-107 iwsq=159) CO2 (BEAKER) (test 26 meq/L 22-29 ntia=622) BLOOD UREA NITROGEN 16 mg/dL 7-21 (BEAKER) (test bdsd=351) CREATININE (BEAKER) (test 1.18 mg/dL 0.57-1.25 Specimen slightly sfui=539) hemolyzed GLUCOSE RANDOM (BEAKER) 105 mg/dL 70-105 (test eeyu=166) CALCIUM (BEAKER) (test 8.2 mg/dL 8.4-10.2 tuih=719) EGFR (BEAKER) (test 61 mL/min/1.73 sq m ESTIMATED GFR IS NOT iyyx=1836) ACCURATE CREATININE CLEARANCE IN PREDICTING GLOMERULAR FILTRATION RATE. ESTIMATED GFR IS NOT APPLICABLE FOR DIALYSIS PATIENTS. CBC W/PLT COUNT & AUTO [id number] 16:07:00 Test Item Value Reference Range Comments WHITE BLOOD CELL COUNT (BEAKER) (test uzbs=568) 10.0 K/ L 3.5-10.5 RED BLOOD CELL COUNT (BEAKER) (test xceo=381) 4.48 M/ L 4.63-6.08 HEMOGLOBIN (BEAKER) (test cdnv=424) 12.9 GM/DL 13.7-17.5 HEMATOCRIT (BEAKER) (test liuu=179) 38.5 % 40.1-51.0 MEAN CORPUSCULAR VOLUME (BEAKER) (test xuyn=768) 85.9 fL 79.0-92.2 MEAN CORPUSCULAR HEMOGLOBIN (BEAKER) (test 28.8 pg 25.7-32.2 lgep=744) MEAN CORPUSCULAR HEMOGLOBIN CONC (BEAKER) (test 33.5 GM/DL 32.3-36.5 name=304) RED CELL DISTRIBUTION WIDTH (BEAKER) (test 13.0 % 11.6-14.4 wail=829) PLATELET COUNT (BEAKER) (test kfgo=776) 217 K/CU MM 150-450 MEAN PLATELET VOLUME (BEAKER) (test nkqz=970) 10.9 fL 9.4-12.4 NUCLEATED RED BLOOD CELLS (BEAKER) (test 0 /100 WBC 0-0 ocwg=434) NEUTROPHILS RELATIVE PERCENT (BEAKER) (test 71 % cdfa=454) LYMPHOCYTES RELATIVE PERCENT (BEAKER) (test 22 % xgpt=468) MONOCYTES RELATIVE PERCENT (BEAKER) (test 5 % thqj=975) EOSINOPHILS RELATIVE PERCENT (BEAKER) (test 0 % smli=104) BASOPHILS RELATIVE PERCENT (BEAKER) (test 1 % fzkb=842) NEUTROPHILS ABSOLUTE COUNT (BEAKER) (test 7.13 K/ L 1.78-5.38 klgj=729) LYMPHOCYTES ABSOLUTE COUNT (BEAKER) (test 2.24 K/ L 1.32-3.57 lcai=408) MONOCYTES ABSOLUTE COUNT (BEAKER) (test 0.54 K/ L 0.30-0.82 zhjf=270) EOSINOPHILS ABSOLUTE COUNT (BEAKER) (test 0.03 K/ L 0.04-0.54 ajqr=609) BASOPHILS ABSOLUTE COUNT (BEAKER) (test 0.05 K/ L 0.01-0.08 nesu=414) IMMATURE GRANULOCYTES-RELATIVE PERCENT (BEAKER) 0 % 0-1 (test bmcl=4239)
--- OUTSIDE RECORDS SUMMARY | 2018-05-28 05:08 | XMS REPORT | Clinical Summary ---
:1950 Author Organization [facility] Address [address] [place] [address] Phone Care Team Providers Name Role Phone Unavailable Primary Care Provider Unavailable Allergies No Known Allergies Current Medications Prescription Sig. Disp. Refills Start Date End Date Status aspirin 81 MG EC Take 1 tablet 90 tablet 0 05/05/2017 Active tabletIndications: (81 mg total) unknown dosage by mouth daily. atorvastatin (LIPITOR) Take 1 tablet 90 tablet 0 05/05/2017 05/05/2018 80 MG tablet (80 mg total) by mouth nightly. metoprolol (TOPROL-XL) Take 1 tablet 90 tablet 0 05/05/2017 05/05/2018 25 MG 24 hr tablet (25 mg total) by mouth daily. Active Problems Problem Noted Date Received tissue plasminogen activator (t-PA) less than 24 hours prior to 05/05 arrival Essential hypertension 05/05/2017 Mixed hyperlipidemia 05/05/2017 Acute ischemic right MCA stroke (HCC) 05/02/2017 Social History Tobacco Use Types Packs/Day Years Used Date Former Smoker Sex Assigned at Date Recorded Not on file Last Filed Vital Signs Not on file Plan of Treatment Not on file Results RHYTHM STRIP - SCAN (06/23/2017 2:02 PM)after 05/27/2017
[2018-05-28] MEDS ORDERED: dilTIAZem HCl 50 MG/10 ML VIAL IV ONE (05:43)
[2018-05-28] MEDS ORDERED: DILTIAZEM HCL 60 MG TAB ONE (05:58)
[2018-05-28 06:00] LABS: Absolute Lymphocytes (CBC) 2.7 K/uL (0.7-4.9); Absolute Monocytes 0.8 K/uL (0.1-1.3); Absolute Neutrophil 5.3 K/uL (1.8-8.0); Basophils % 0.6 % (0-1.3); Eosinophils % 2.5 % (0-4.4); Hematocrit 42.5 % (39.6-49.0); Lymphocytes % 29.6 % (15.3-44.8); MCH 29.7 pg (27.0-35.0); MCV 86.9 fL (80-100); MPV 9.5 fL (7.6-11.3); Monocytes % 8.6 % (3.3-12.3); Protime INR 1.29; RBC Red Blood Cell Count 4.89 M/uL (4.33-5.43)
[2018-05-28 06:12] LABS: Albumin 3.7 g/dL (3.4-5.0); Bilirubin Total 0.2 mg/dL (0.2-1.0); Magnesium 2.2 mg/dL (1.8-2.4); Potassium 4.2 mmol/L (3.5-5.1)
--- NOTE | 2018-05-28 06:32 | EDPHYS ---
Physician Documentation [facility] Name: Jaiden Swift Age: 67 yrs Sex: Male : 1950 Arrival Date: 05/28/2018 Time: 05:07 Bed 3 Private MD: Leighton Rollins V ED Physician Nazario Bergeron HPI: 05/28 05:09 This 67 yrs old Male presents to ER via Unassigned with complaints of Chest ps1 Pain. 05:09 hx of Afib and non-compliance. Hx of same in past. Pt of Dr. Ramachandran. Patient on sotalol ps1 and xarelto. c/o chest pressure and palpitations. . Historical: - Allergies: 05:53 No Known Allergies; jd3 - Home Meds: 05:53 atorvastatin 80 mg oral tab [Active]; Xarelto 20 mg Oral tab 1 tab once daily [Active]; jd3 sotalol 80 mg Oral tab 1 tab 2 times per day [Active]; - PMHx: 05:53 Atrial Fib; CVA; High Cholesterol; Hypertension; jd3 - PSHx: 05:53 None; jd3 - Immunization history:: Adult Immunizations up to date. - Social history:: Smoking status: Patient/guardian denies using tobacco, Patient uses alcohol, only on a social basis. - Ebola Screening: : Patient negative for fever greater than or equal to 101.5 degrees Fahrenheit, and additional compatible Ebola Virus Disease symptoms. ROS: 05:18 Constitutional: Negative for fever, chills, and weight loss, Eyes: Negative for injury, ps1 pain, redness, and discharge, Respiratory: Negative for shortness of breath, cough, wheezing, and pleuritic chest pain, Abdomen/GI: Negative for abdominal pain, nausea, vomiting, diarrhea, and constipation, Back: Negative for injury and pain, MS/Extremity: Negative for injury and deformity, Skin: Negative for injury, rash, and discoloration, Neuro: Negative for headache, weakness, numbness, tingling, and seizure. 05:18 Cardiovascular: Positive for chest pain, palpitations. Exam: 05:18 Constitutional: This is a well developed, well nourished patient who is awake, alert, ps1 and in no acute distress. Head/Face: Normocephalic, atraumatic. Eyes: Pupils equal round and reactive to light, extra-ocular motions intact. Lids and lashes normal. Conjunctiva and sclera are non-icteric and not injected. Chest/axilla: Normal chest wall appearance and motion. Nontender with no deformity. No lesions are appreciated. Respiratory: Lungs have equal breath sounds bilaterally, clear to auscultation and percussion. No rales, rhonchi or wheezes noted. No increased work of breathing, no retractions or nasal flaring. Abdomen/GI: Soft, non-tender, with normal bowel sounds. No distension or tympany. No guarding or rebound. No evidence of tenderness throughout. Back: No spinal tenderness. No costovertebral tenderness. Full range of motion. Skin: Warm, dry with normal turgor. Normal color with no rashes, no lesions, and no evidence of cellulitis. 05:18 Cardiovascular: Rate: tachycardic, Rhythm: irregularly irregular, Pulses: no pulse deficits are appreciated. Vital Signs: 05:27 BP 108 / 87; Pulse 135; Resp 17 S; Temp 98.5(O); Pulse Ox 99% on R/A; Weight 77.11 kg jd3 (R); Height 5 ft. 5 in. (165.10 cm) (R); Pain 4/10; 05:45 BP 117 / 83; Pulse 69; Resp 17 S; Pulse Ox 95% on R/A; jd3 06:04 BP 123 / 79; Pulse 66; Resp 16 S; Pulse Ox 96% on R/A; jd3 06:36 BP 119 / 74; Pulse 62; Resp 16 S; Pulse Ox 96% on R/A; jd3 07:30 BP 123 / 74; Pulse 67; Resp 17; Pulse Ox 98% on R/A; Pain 0/10; tw2 05:27 Body Mass Index 28.29 (77.11 kg, 165.10 cm) jd3 MDM: 05:18 Patient medically screened. ps1 05:42 Data reviewed: vital signs, nurses notes, EKG. ED course: patient spontaneously ps1 converted to NSR rate 75. WIll give cardizem po. . 05/28 05:10 Order name: CBC with Diff; Complete Time: 06:20 ps1 05/28 05:10 Order name: Magnesium; Complete Time: 06:20 ps1 05/28 05:10 Order name: NT PRO-BNP; Complete Time: 06:20 ps1 05/28 05:10 Order name: PT-INR; Complete Time: 06:20 ps1 05/28 05:10 Order name: Troponin (emerg Dept Use Only); Complete Time: 06:20 ps1 05/28 05:10 Order name: CMP; Complete Time: 06:20 ps1 05/28 06:03 Order name: Urine Dipstick--Ancillary (enter results) rg2 05/28 06:35 Order name: Basic Metabolic Panel EDMS 05/28 06:35 Order name: Basic Metabolic Panel EDMS 05/28 06:35 Order name: CBC with Automated Diff EDMS 05/28 06:35 Order name: CBC with Automated Diff EDMS 05/28 06:35 Order name: Troponin I EDMS 05/28 06:35 Order name: Troponin I EDMS 05/28 06:35 Order name: Troponin I EDMS 05/28 05:10 Order name: XRAY Chest (1 view) ps1 05/28 05:10 Order name: EKG; Complete Time: 05:11 ps1 05/28 05:10 Order name: Cardiac monitoring; Complete Time: 05:30 ps1 05/28 05:10 Order name: EKG - Nurse/Tech; Complete Time: 05:30 ps1 05/28 05:10 Order name: IV Saline Lock; Complete Time: 06:03 ps1 05/28 05:10 Order name: Labs collected and sent; Complete Time: 06:03 ps1 05/28 05:10 Order name: O2 Per Protocol; Complete Time: 05:31 ps1 05/28 06:35 Order name: CONS Physician Consult EDMS 05/28 06:35 Order name: Regular EDMS 05/28 06:35 Order name: EKG Electrocardiogram EDMS 05/28 06:35 Order name: EKG Electrocardiogram EDMS 05/28 06:35 Order name: EKG Electrocardiogram EDMS 05/28 06:35 Order name: EKG Electrocardiogram EDMS 05/28 05:10 Order name: O2 Sat Monitoring; Complete Time: 05:31 ps1 05/28 05:10 Order name: Urine Dipstick-Ancillary (obtain specimen); Complete Time: 06:03 ps1 EC:23 Rate is 135 beats/min. Rhythm is irregular. QRS [place] is Normal. QRS interval is normal. ps1 QT interval is normal. No Q waves. T waves are Normal. No ST changes noted. Clinical impression: Atrial Fibrillation and Atrial Fibrillation with Rapid Ventricular Response. . Interpreted by me. 05:43 Rate is 71 beats/min. Rhythm is regular. QRS [place] is Normal. SC interval is normal. QRS ps1 interval is normal. QT interval is normal. T waves are Normal. No ST changes noted. Clinical impression: Normal ECG. Interpreted by me. Administered Medications: 05:44 Not Given (patient spontaneously converted): Cardizem 5 mg/hr IV at calculated rate ps1 continuous; (standard dilution 125 mg diltiazem mixed in 100mL NS; final concentration 1mg/mL) 05:44 Not Given (patient spontaneously converted. ): Cardizem 20 mg IVP once; Over 2 minutes ps1 05:59 Drug: Cardizem 60 mg Route: PO; jd3 06:40 Follow up: Response: No adverse reaction jd3 Disposition: 05/28/18 06:32 Hospitalization ordered by Leighton Rollins for Observation. Preliminary diagnosis is Afib with RVR. - Bed requested for Telemetry/MedSurg (observation). - Status is Observation. tw2 - Condition is Fair. - Problem is chronic. - Symptoms have improved. UTI on Admission? No Signatures: Dispatcher [employer] Dinora Casey RN RN dw Rosita Magaña RN RN tw2 Rayo Cummins RN RN Nazario Carey MD MD ps1 Corrections: (The following items were deleted from the chart) 05:19 05:09 hx of afib and non-compliance. hx of same in past. . ps1 ps1 06:58 06:32 Hospitalization Ordered by Leighton Rollins MD for Observation. Preliminary diagnosis dw is Afib with RVR. Bed requested for Telemetry/MedSurg (observation). Status is Observation. Condition is Fair. Problem is chronic. Symptoms have improved. UTI on Admission? No. ps1 07:49 06:58 05/28/2018 06:32 Hospitalization Ordered by Leighton Rollins MD for Observation. tw2 Preliminary diagnosis is Afib with RVR. Bed requested for Telemetry/MedSurg (observation). Status is Observation. Condition is Fair. Problem is chronic. Symptoms have improved. UTI on Admission? No. dw
--- NOTE | 2018-05-28 06:32 | ER ---
Nurse's Notes [facility] Name: Jaiden Swift Age: 67 yrs Sex: Male : 1950 Arrival Date: 05/28/2018 Time: 05:07 Bed 3 Private MD: Leighton Rollins V Diagnosis: Afib with RVR Presentation: 05/28 05:26 Presenting complaint: Patient states: "I felt like a car was sitting on my chest.". jd3 Transition of care: patient was not received from another setting of care. Onset of symptoms was May 28, 2018. Risk Assessment: Do you want to hurt yourself or someone else? Patient reports no desire to harm self or others. Initial Sepsis Screen: Does the patient meet any 2 criteria? HR > 90 bpm. No. Patient's initial sepsis screen is negative. Does the patient have a suspected source of infection? No. Patient's initial sepsis screen is negative. Care prior to arrival: None. 05:26 Method Of Arrival: Ambulatory jd3 05:26 Acuity: JESSICA 2 jd3 Historical: - Allergies: 05:53 No Known Allergies; jd3 - Home Meds: 05:53 atorvastatin 80 mg oral tab [Active]; Xarelto 20 mg Oral tab 1 tab once daily [Active]; jd3 sotalol 80 mg Oral tab 1 tab 2 times per day [Active]; - PMHx: 05:53 Atrial Fib; CVA; High Cholesterol; Hypertension; jd3 - PSHx: 05:53 None; jd3 - Immunization history:: Adult Immunizations up to date. - Social history:: Smoking status: Patient/guardian denies using tobacco, Patient uses alcohol, only on a social basis. - Ebola Screening: : Patient negative for fever greater than or equal to 101.5 degrees Fahrenheit, and additional compatible Ebola Virus Disease symptoms. Screenin:49 Abuse screen: Denies threats or abuse. Nutritional screening: No deficits noted. jd3 Tuberculosis screening: No symptoms or risk factors identified. Fall Risk IV access (20 points). Ambulatory Aid- None/Bed Rest/Nurse Assist (0 pts). Gait- Normal/Bed Rest/Wheelchair (0 pts) Mental Status- Oriented to own ability (0 pts). Total Moore Fall Scale indicates No Risk (0-24 pts). Assessment: 05:28 General: Appears uncomfortable, Behavior is cooperative, appropriate for age, anxious. jd3 Pain: Complains of pain in chest Pain does not radiate. Pain currently is 4 out of 10 on a pain scale. Quality of pain is described as pressure, Pain began 1 hour ago. Neuro: Level of Consciousness is awake, alert, obeys commands, Oriented to person, place, time, situation. Cardiovascular: Heart tones S1 S2 present Capillary refill < 3 seconds Patient's skin is warm and dry. Rhythm is atrial fibrillation. Respiratory: Airway is patent Respiratory effort is even, unlabored, Respiratory pattern is regular, symmetrical, Breath sounds are clear bilaterally. GI: No signs and/or symptoms were reported involving the gastrointestinal system. Abdomen is round non-distended. : No signs and/or symptoms were reported regarding the genitourinary system. EENT: No signs and/or symptoms were reported regarding the EENT system. Derm: Skin is intact, Skin is dry, Skin is normal, Skin temperature is warm. Musculoskeletal: Circulation, motion, and sensation intact. Range of motion: intact in all extremities. 05:46 Reassessment: Patient and/or family updated on plan of care and expected duration. Pain jd3 level reassessed. Patient is alert, oriented x 3, equal unlabored respirations, skin warm/dry/pink. Patient states symptoms have improved. Cardiovascular: Rhythm is sinus rhythm. 06:04 Reassessment: Patient and/or family updated on plan of care and expected duration. Pain jd3 level reassessed. Patient is alert, oriented x 3, equal unlabored respirations, skin warm/dry/pink. Patient states feeling better. 06:36 Reassessment: Patient and/or family updated on plan of care and expected duration. Pain jd3 level reassessed. Patient is alert, oriented x 3, equal unlabored respirations, skin warm/dry/pink. Patient states feeling better. 07:35 Reassessment: Patient appears in no apparent distress at this time. Patient and/or tw2 family updated on plan of care and expected duration. Pain level reassessed. Patient is alert, oriented x 3, equal unlabored respirations, skin warm/dry/pink. Vital Signs: 05:27 BP 108 / 87; Pulse 135; Resp 17 S; Temp 98.5(O); Pulse Ox 99% on R/A; Weight 77.11 kg jd3 (R); Height 5 ft. 5 in. (165.10 cm) (R); Pain 4/10; 05:45 BP 117 / 83; Pulse 69; Resp 17 S; Pulse Ox 95% on R/A; jd3 06:04 BP 123 / 79; Pulse 66; Resp 16 S; Pulse Ox 96% on R/A; jd3 06:36 BP 119 / 74; Pulse 62; Resp 16 S; Pulse Ox 96% on R/A; jd3 07:30 BP 123 / 74; Pulse 67; Resp 17; Pulse Ox 98% on R/A; Pain 0/10; tw2 05:27 Body Mass Index 28.29 (77.11 kg, 165.10 cm) jd3 ED Course: 05:07 Patient arrived in ED. ds1 05:07 Leighton Rollins MD is Private Physician. ds1 05:09 Nazario Bergeron MD is Attending Physician. ps1 05:22 X-ray completed. Portable x-ray completed in exam room. Patient tolerated procedure kw well. 05:25 Rayo Cummins RN is Primary Nurse. jd3 05:26 Triage completed. jd3 05:27 Arm band placed on. EKG completed in triage. Results shown to MD. jd3 05:38 Inserted saline lock: 20 gauge in left antecubital area, using aseptic technique. Blood jd3 collected. Patient maintains SpO2 saturation greater than 95% on room air. 05:45 EKG done, by ED staff, reviewed by Nazario Bergeron MD. aa1 05:47 Patient has correct armband on for positive identification. Placed in gown. Bed in low jd3 position. Call light in reach. Side rails up X2. Adult w/ patient. cafeteria monitor on. Pulse ox on. NIBP on. 05:53 XRAY Chest (1 view) In Process Unspecified. EDMS 06:31 Leighton Rollins MD is Hospitalizing Provider. ps1 06:57 Primary Nurse role handed off by Rayo Cummins, MANJEET tw2 06:57 Rosita Magaña RN is Primary Nurse. tw2 07:28 Awaiting: michelle Vital, secretary bookkeeper, MANJEET Beck is getting report on another patient asked if tw2 I can call back. 07:31 No provider procedures requiring assistance completed. Patient admitted, IV remains in tw2 place. Administered Medications: 05:44 Not Given (patient spontaneously converted): Cardizem 5 mg/hr IV at calculated rate ps1 continuous; (standard dilution 125 mg diltiazem mixed in 100mL NS; final concentration 1mg/mL) 05:44 Not Given (patient spontaneously converted. ): Cardizem 20 mg IVP once; Over 2 minutes ps1 05:59 Drug: Cardizem 60 mg Route: PO; jd3 06:40 Follow up: Response: No adverse reaction jd3 Outcome: 06:32 Decision to Hospitalize by Provider. ps1 07:38 Admitted to Med/surg accompanied by tech, via wheelchair, room 423, with chart, Report tw2 called to MANJEET Beck 07:38 Condition: stable 07:38 Instructed on the need for admit. 07:49 Patient left the ED. tw2 Signatures: Dispatcher [employer] EDMS Brianna Carranza RN RN aa1 Nohelia Shaffer ds1 Billie Jones Tara, RN RN tw2 Rayo Cummins RN RN jd3 Nazario Bergeron MD MD ps1 Corrections: (The following items were deleted from the chart) 05:54 05:53 BP 117 / 83; Pulse 69bpm; Resp 17bpm; Spontaneous; Pulse Ox 95% RA; jd3 jd3
[2018-05-28] MEDS ORDERED: MORPHINE 4 MG/ML SYR IV PRN (06:33)
[2018-05-28] MEDS ORDERED: ACETAMINOPHEN 500 MG TAB PO PRN (06:33)
[2018-05-28] MEDS ORDERED: ONDANSETRON 4 MG/2 ML VIAL IV PRN (06:33)
[2018-05-28 06:54] LABS: Urine Blood NEGATIVE (NEG); Urine Glucose NEGATIVE (NEG); Urine Protein NEGATIVE (NEG)
--- NOTE | 2018-05-28 07:49 | EKG ---
Test Date: 2018-05-28 Test Time: 05:23:48 [employer] Mechanic: AMISHA MEASUREMENT RESULTS: Intervals: Rate: 135 GA: QRSD: 74 QT: 328 QTc: 492 [place]: P: GA: QRS: 72 T: 14 INTERPRETIVE STATEMENTS: Supraventricular tachycardia, possible atrial flutter with 2 to 1 block Otherwise normal ECG Compared to ECG 04/21/2018 08:19:48 Sinus bradycardia no longer present Left ventricular hypertrophy no longer present Electronically Signed On 05-28-18 07:49:22 CDT by Santos Ramachandran
--- NOTE | 2018-05-28 08:45 | RAD REPORT ---
EXAM DESCRIPTION: Ruth Single View05/28/2018 5:52 am CLINICAL HISTORY: Chest pain COMPARISON: April 2018 FINDINGS: The lungs appear clear of acute infiltrate. The heart is normal size IMPRESSION: No acute abnormalities displayed
[2018-05-28] MEDS ORDERED: ASPIRIN EC 81 MG TAB PO SCH (09:00)
--- NOTE | 2018-05-28 11:29 | EKG ---
Test Date: 2018-05-28 Test Time: 05:43:58 Volleyball Player: GABRIELLAG MEASUREMENT RESULTS: Intervals: Rate: 71 NC: 154 QRSD: 76 QT: 400 QTc: 434 [place]: P: 53 NC: 154 QRS: -26 T: -2 INTERPRETIVE STATEMENTS: Normal sinus rhythm Normal ECG Compared to ECG 05/28/2018 05:23:48 Atrial flutter is no longer present Electronically Signed On 05-28-18 11:29:12 CDT by Santos Ramachandran
--- NOTE | 2018-05-28 12:47 | CON ---
Chief Complaint: Heart racing. History Of Present Illness: Mr. Swift is 67. He has been on Betapace for about 2 weeks. He has h ad recurrent atrial fibrillation in September 2017. His atrial fibrillation caused a stroke. He has had complete or nearly complete neurological recovery from that. He is presently taking Betapace 80 twice a day and rivaroxaban 20. He developed a fluttering in the chest. His EKG showed atrial flutt er. I can't tell from the notes whether he got Cardizem or not. I think they started to do a drip b efore he got a bolus. He went into a normal rhythm. He now feels fine. Physical Examination: General: He is alert, oriented, pleasant, not in distress. Neck: Carotids, no bruit. Lungs: Clear. Cardiac: Normal. Abdomen: Soft. Extremities: Normal. Impression: We will make sure we get an EKG with him in sinus rhythm. There is some indication that may have already been done. I just can't see it. We will get it done to document he is in normal r hythm. At this point, I think he could be discharged back for outpatient care. It looks like his Be tapace will be failure here and the option of trying a different drug given a little bit longer time or having him go through an atrial flutter ablation. Thank you very much for your kind referral of Mr. Swift. I will follow him with you. BRITTNI/LEOLA Voice ID: [id number] Report ID: [id number]
[2018-05-28] MEDS ORDERED: RIVAROXABAN 20 MG TABLET PO SCH (17:30)
[2018-05-28] MEDS ORDERED: SOTALOL HCL 80 MG TAB PO SCH (18:00)
--- NOTE | 2018-05-28 18:02 | P.SSS ---
Patient History Date of Service: 05/28/18 Reason for admission: PALPITATIONS History of Present Illness: MR. DUARTE HAS HAD A FIB BEFORE. HE IS ON ANTICOAGULATION ALREADY. HE HAD EPISODE OF PALPITATIONS WITH A FLUTTER AND BEFORE ANY MEDS HE CONVERTED BACK TO SINUS. HE IS BACK TO BASELINE AND DR. PHILIP THINKS HE CAN REFER HIM TO EPS DO[facility]ORS IN [place]. HE ADVISED DC HE IS STABLE. Allergies No Known Allergies Allergy (Unverified 04/20/18 08:53) Home Medications: Atorvastatin Calcium [Lipitor*] 20 mg PO BEDTIME 04/20/18 Rivaroxaban [Xarelto] 20 mg PO DAILY AFTER SUPPER 04/20/18 Sotalol HCl [Betapace*] 80 mg PO BID 6AM 6PM tab 04/21/18 Sotalol HCl [Sotalol AF] 80 mg PO BID #60 tablet 04/21/18 - Past Medical/Surgical History Diabetic: No -: high cholesterol -: hypertension -: atrial fib -: CVA -: afib - Family History Mother -: Heart disease - Social History Alcohol use: No CD- Drugs: No Caffeine use: Yes Review of Systems 10-point ROS is otherwise unremarkable Physical Examination - Vital Signs Temperature: 98.5 F Blood Pressure: 134/76 Pulse: 58 Respirations: 20 Pulse Ox (%): 99 - Physical Exam General: Alert, In no apparent distress HEENT: Atraumatic, PERRLA, Mucous membr. moist/pink, EOMI, Sclerae nonicteric Neck: Supple, 2+ carotid pulse no bruit, No LAD, Without JVD or thyroid abnormality Respiratory: Clear to auscultation bilaterally, Normal air movement Cardiovascular: Regular rate/rhythm, Normal S1 S2 Gastrointestinal: Normal bowel sounds, No tenderness Musculoskeletal: No tenderness Integumentary: No rashes Neurological: Normal gait, Normal speech, Normal strength at 5/5 x4 extr, Normal tone, Normal affect Lymphatics: No axilla or inguinal lymphadenopathy - Studies Laboratory Data (last 24 hrs) 05/28/18 05:38: PT 15.3 H, INR 1.29 05/28/18 05:38: WBC 9.1, Hgb 14.5, Hct 42.5, Plt Count 241 05/28/18 05:38: Sodium 141, Potassium 4.2, BUN 21 H, Creatinine 1.10, Glucose 146 H, Magnesium 2.2, Total Bilirubin 0.2, AST 23, ALT 32, Alkaline Phosphatase 69 - Diagnosis (Problem(s)) (1) Atrial fib/flutter, transient Onset Date: 04/23/18 Status: Chronic Plan: STABLE NOW WILL FU WITH DR. CEDRICK STUART MD IN [place]. - Disposition Disposition: ROUTINE DISCHARGE Diet: Regular
[2018-05-28] MEDS ORDERED: ATORVASTATIN 20 MG TAB PO SCH (21:00)
== END 2018-05-28 12:20 | disposition home or self-care (01) ==
LOC: ER 05:06 → ERHOLD 06:35 → 4TH 07:43
PROVIDERS: ADMIT Internal Medicine; ATTEND Internal Medicine
DX: I48.91 Unspecified atrial fibrillation (principal); I10 Essential (primary) hypertension; E78.00 Pure hypercholesterolemia, unspecified; Z79.01 Long term (current) use of anticoagulants; Z86.73 Personal history of transient ischemic attack (TIA), and cerebral infarction without residual deficits
CPT/HCPCS: 36415; 71045; 80053; 81003; 83735; 83880; 84484; 85025; 85610; 93005 ×2; 99285; G0378 ×2